=== PATIENT | male | born 1945 | race Caucasian/White ===

== ENCOUNTER 2018-05-30 09:23 | Emergency (ER) | payer MEDICARE, BC ==
[~2018-05-30] VITALS: Ht 180.3 cm; Wt 109.1 kg
[~2018-05-30 09:23] MED LIST: ALLO300T2 PO; AMLO5TAB PO; ASPI-611 PO; ATOR-2 PO; CHOL10008 PO; CITA20TA19 PO; DESO15CR13 TP; ERYT30GE4 TOP; GABA-532 PO; GUAI200T5 PO; HYDR-4070 PO; HYPR15DR4 EACHEYE; LINA5TAB4 PO; METF850T2 PO; METO200T49 PO; OLME1TAB21 PO; OMEP20TA5 PO; PIOG30TA10 PO; [UNRECOGNIZED DRUG - CODE] TOP
[2018-05-30] MEDS ORDERED: ipratropium/albuterol 3ml nebule NEB ONE (09:55)
[2018-05-30 10:10] LABS: BASOPHILS % (AUTO) 0.3 % (0-1); EOSINOPHILS # (AUTO) 0.2 X10'3 (0-0.9); HEMATOCRIT 36.8 % (42.0-52.0); HEMOGLOBIN 12.1 g/dl (14.0-17.9); LYMPHOCYTES # (AUTO) 1.2 X10'3 (1.1-4.8); MEAN CORPUSCULAR HEMOGLOBIN 31.5 PG (27.0-31.0); MEAN CORPUSCULAR HGB CONC 32.9 % (33.0-36.5); MEAN CORPUSCULAR VOLUME 95.7 FL (78-98); MONOCYTES # (AUTO) 0.6 X10'3 (0-0.9); MONOCYTES % (AUTO) 11.1 % (2-12); NEUTROPHILS # (AUTO) 3.6 X10'3 (1.8-7.7); NEUTROPHILS % (AUTO) 64.6 % (42-75); PLATELET COUNT 138 X10'3 (140-440); RED BLOOD COUNT 3.84 X10'6 (4.70-6.10); RED CELL DISTRIBUTION WIDTH 15.8 % (11.5-14.5); WHITE BLOOD COUNT 5.5 X10'3 (4.5-11.0)
[2018-05-30 10:21] LABS: INR 1.1 INR; PARTIAL THROMBOPLASTIN TIME 27 SECONDS (22-32); PROTHROMBIN TIME 11.3 SECONDS (9.0-12.0)
[2018-05-30 10:32] LABS: ALANINE AMINOTRANSFERASE 20 U/L (12-78); ALBUMIN 3.4 G/DL (3.4-5.0); ALBUMIN/GLOBULIN RATIO 1.1 (1.1-1.5); ALKALINE PHOSPHATASE 57 IU/L (46-116); ANION GAP 7 (8-16); ASPARTATE AMINO TRANSFERASE 16 U/L (10-37); BILIRUBIN,TOTAL 0.3 MG/DL (0.1-1.0); BLOOD UREA NITROGEN 10 MG/DL (7-18); BUN/CREATININE RATIO 10.6 (5.4-32.0); CALCIUM 8.7 MG/DL (8.5-10.1); CHLORIDE 103 MMOL/L (99-107); CREATININE 0.94 MG/DL (0.60-1.10); GLUCOSE 142 MG/DL (70-104); POTASSIUM 3.9 MMOL/L (3.5-5.1); SODIUM 138 MMOL/L (135-145); TOTAL PROTEIN 6.5 G/DL (6.4-8.2); eGFR 79 ML/MIN
[2018-05-30 10:51] VITALS: BP 160/81
== END 2018-05-30 11:03 | disposition home or self-care (01) ==
LOC: ER 09:24
DX: J44.9 Chronic obstructive pulmonary disease, unspecified (principal); R06.03 Acute respiratory distress; I25.10 Atherosclerotic heart disease of native coronary artery without angina pectoris; E78.00 Pure hypercholesterolemia, unspecified; I10 Essential (primary) hypertension; E11.9 Type 2 diabetes mellitus without complications; G89.29 Other chronic pain; Z95.1 Presence of aortocoronary bypass graft; Z98.890 Other specified postprocedural states; Z88.5 Allergy status to narcotic agent; Z79.82 Long term (current) use of aspirin; Z79.84 Long term (current) use of oral hypoglycemic drugs; Z79.899 Other long term (current) drug therapy
CPT/HCPCS: 36415; 71045; 80053; 83880; 84484; 85025; 85610; 85730; 93005; 94640; 94760; 99285

== ENCOUNTER 2018-09-25 02:42 | Inpatient (IN) | payer MEDICARE, BC ==
[~2018-09-25] VITALS: Ht 180.3 cm; Wt 111.8 kg
[~2018-09-25 02:42] MED LIST changes: +METF-437 PO; -METF850T2 PO
[2018-09-25] MEDS ORDERED: aspirin 81mg tab.chew PO ONE (03:25)
[2018-09-25] MEDS ORDERED: nitroGLYCERIN 0.4mg SUBLingual tab SL PRN ×2 (03:25→15:30)
[2018-09-25 04:15] LABS: BASOPHILS % (AUTO) 0.5 % (0-1); EOSINOPHILS # (AUTO) 0.2 X10'3 (0-0.9); EOSINOPHILS % (AUTO) 3.4 % (0-6); HEMATOCRIT 36.7 % (42.0-52.0); HEMOGLOBIN 12.1 g/dl (14.0-17.9); LYMPHOCYTES # (AUTO) 1.6 X10'3 (1.1-4.8); LYMPHOCYTES % (AUTO) 21.9 % (21-51); MEAN CORPUSCULAR HEMOGLOBIN 30.9 PG (27.0-31.0); MEAN CORPUSCULAR HGB CONC 33.1 % (33.0-36.5); MEAN CORPUSCULAR VOLUME 93.4 FL (78-98); MEAN PLATELET VOLUME 9.3 FL (7.4-10.4); MONOCYTES # (AUTO) 0.7 X10'3 (0-0.9); MONOCYTES % (AUTO) 9.8 % (2-12); NEUTROPHILS # (AUTO) 4.7 X10'3 (1.8-7.7); NEUTROPHILS % (AUTO) 64.4 % (42-75); PLATELET COUNT 125 X10'3 (140-440); RED BLOOD COUNT 3.93 X10'6 (4.70-6.10); RED CELL DISTRIBUTION WIDTH 15.7 % (11.5-14.5); WHITE BLOOD COUNT 7.3 X10'3 (4.5-11.0)
[2018-09-25 04:32] LABS: ALANINE AMINOTRANSFERASE 19 U/L (12-78); ALBUMIN 3.4 G/DL (3.4-5.0); ALBUMIN/GLOBULIN RATIO 1.1 (1.1-1.5); ALKALINE PHOSPHATASE 65 IU/L (46-116); ANION GAP 8 (8-16); ASPARTATE AMINO TRANSFERASE 12 U/L (10-37); BILIRUBIN,TOTAL 0.4 MG/DL (0.1-1.0); BLOOD UREA NITROGEN 16 MG/DL (7-18); BUN/CREATININE RATIO 16.2 (5.4-32.0); CALCIUM 9.1 MG/DL (8.5-10.1); CHLORIDE 102 MMOL/L (99-107); CREATININE 0.99 MG/DL (0.60-1.10); GLUCOSE 130 MG/DL (70-104); POTASSIUM 3.9 MMOL/L (3.5-5.1); SODIUM 140 MMOL/L (135-145); TOTAL CARBON DIOXIDE 30.5 MMOL/L (24-32); TOTAL PROTEIN 6.4 G/DL (6.4-8.2); eGFR 74 ML/MIN
[2018-09-25 04:33] LABS: INR 1.1 INR; PROTHROMBIN TIME 11.4 SECONDS (9.0-12.0)
[2018-09-25 04:39] LABS: MAGNESIUM 1.1 MG/DL (1.5-2.4)
[2018-09-25] MEDS ORDERED: ondansetron/PF 4mg/2ml inj IV PRN (05:30)
[2018-09-25] MEDS ORDERED: mag hydrox/Alum hydrox/simeth 30ml oral suspension PO PRN (05:30)
[2018-09-25] MEDS ORDERED: acetaminophen 325mg tablet PO PRN (05:30)
[2018-09-25] MEDS ORDERED: magnesium hydroxide 30ml (MOM) UD suspension PO PRN (05:30)
[2018-09-25] MEDS ORDERED: METF500T PO (05:52)
[2018-09-25] MEDS: losartan 50mg tablet PO SCH (08:53)
[2018-09-25] MEDS: HYDROchlorothiazide 12.5mg capsule PO SCH (08:54)
[2018-09-25] MEDS: gabapentin 300mg capsule PO SCH ×2 (08:54→18:56)
[2018-09-25] MEDS: aspirin 81mg tab.chew PO SCH (08:54)
[2018-09-25] MEDS: heparin, porcine 5000 units/ml vial SQ SCH ×2 (08:56→18:57)
[2018-09-25] MEDS ORDERED: metoprolol tartrate 1mg/ml inj IV PRN (15:30)
[2018-09-25] MEDS ORDERED: aminophylline 250mg/10ml inj. IV PRN (15:30)
[2018-09-25] MEDS ORDERED: regadenoson 0.4mg/5ml syringe IV PRN (15:30)
--- NOTE | 2018-09-25 16:00 | NUR ---
Patient in room ED 9. I have received report from Cynthia RN and had the opportunity to ask questions and assume patient care.
--- NOTE | 2018-09-25 16:15 | NUR ---
Patient arrived from ED with ER nurse and in PCU room 3016A. Patient resting comfortably in bed and in no acute distress. VS 168/81, KAT 54, RR 18, O2 94 on RA. Patient oriented to room and call light. All questions and concerned answered at this time. Will continue to monitor patient.
--- NOTE | 2018-09-25 18:30 | NUR ---
Received report from Glenny STEVENS. Assumed patient care. Patient is awake and alert on room air visiting with his . Call light and items of frequent use within reach. Will continue to monitor for changes.
[2018-09-25] MEDS ORDERED: amLODIPine 5mg tablet PO SCH ×2 (18:54→21:00)
[2018-09-25 19:00] VITALS: BP 186/86
[2018-09-25 20:00] VITALS: BP 173/63
[2018-09-25] MEDS ORDERED: citalopram 20mg tablet PO SCH (21:00)
[2018-09-25] MEDS ORDERED: metoprolol succinate 25mg (24-HOUR) SR. Tablet PO SCH (21:00)
[2018-09-25] MEDS ORDERED: atorvastatin 20mg tablet PO SCH (21:00)
[2018-09-25] MEDS ORDERED: allopurinol 300 MG tablet PO SCH (21:00)
[2018-09-25 23:00] VITALS: BP 153/72
[2018-09-26] VITALS (8 sets, daily range): BP systolic 145–175; BP diastolic 61–84
--- NOTE | 2018-09-26 06:20 | NUR ---
Reported off to Malissa STEVENS. Patient is awake and alert on room air. In no apparent distress. Call light and items of frequent use within reach.
[2018-09-26 06:29] LABS: BASOPHILS % (AUTO) 0.5 % (0-1); EOSINOPHILS # (AUTO) 0.2 X10'3 (0-0.9); EOSINOPHILS % (AUTO) 3.8 % (0-6); HEMATOCRIT 37.2 % (42.0-52.0); HEMOGLOBIN 12.4 g/dl (14.0-17.9); LYMPHOCYTES # (AUTO) 1.7 X10'3 (1.1-4.8); LYMPHOCYTES % (AUTO) 28.1 % (21-51); MEAN CORPUSCULAR HGB CONC 33.3 % (33.0-36.5); MEAN CORPUSCULAR VOLUME 93.1 FL (78-98); MEAN PLATELET VOLUME 9.9 FL (7.4-10.4); MONOCYTES # (AUTO) 0.6 X10'3 (0-0.9); MONOCYTES % (AUTO) 10.9 % (2-12); NEUTROPHILS # (AUTO) 3.3 X10'3 (1.8-7.7); NEUTROPHILS % (AUTO) 56.7 % (42-75); PLATELET COUNT 124 X10'3 (140-440); RED CELL DISTRIBUTION WIDTH 15.5 % (11.5-14.5); WHITE BLOOD COUNT 5.9 X10'3 (4.5-11.0)
[2018-09-26 06:37] LABS: ALANINE AMINOTRANSFERASE 19 U/L (12-78); ALBUMIN 3.3 G/DL (3.4-5.0); ALBUMIN/GLOBULIN RATIO 1.1 (1.1-1.5); ALKALINE PHOSPHATASE 59 IU/L (46-116); ANION GAP 7 (8-16); ASPARTATE AMINO TRANSFERASE 15 U/L (10-37); BILIRUBIN,TOTAL 0.5 MG/DL (0.1-1.0); BLOOD UREA NITROGEN 12 MG/DL (7-18); CALCIUM 8.6 MG/DL (8.5-10.1); CHLORIDE 103 MMOL/L (99-107); CREATININE 0.92 MG/DL (0.60-1.10); GLUCOSE 140 MG/DL (70-104); POTASSIUM 3.7 MMOL/L (3.5-5.1); SODIUM 141 MMOL/L (135-145); TOTAL CARBON DIOXIDE 31.4 MMOL/L (24-32); TOTAL PROTEIN 6.4 G/DL (6.4-8.2); eGFR 81 ML/MIN
[2018-09-26 06:50] LABS: MAGNESIUM 1.1 MG/DL (1.5-2.4)
[2018-09-26] MEDS ORDERED: magnesium 4gm in 100ml NS 100 ML IV PRN (07:25)
[2018-09-26] MEDS ORDERED: magnesium Cl slow-release 64mg tablet PO PRN (07:25)
[2018-09-26] MEDS ORDERED: potassium Cl 20 mEq SR tablet PO PRN ×2 (07:25)
[2018-09-26] MEDS ORDERED: potassium Cl 40MEQ/NS 500ml 500 ML IV PRN ×2 (07:25)
[2018-09-26] MEDS: heparin, porcine 5000 units/ml vial SQ SCH (08:00)
[2018-09-26] MEDS ORDERED: regadenoson 0.4mg/5ml syringe IV ONE (08:43)
[2018-09-26] MEDS ORDERED: aminophylline inj. 10 ML IV ONE (08:43)
[2018-09-26] MEDS: HYDROchlorothiazide 12.5mg capsule PO SCH (11:52)
[2018-09-26] MEDS: gabapentin 300mg capsule PO SCH (11:52)
[2018-09-26] MEDS: losartan 50mg tablet PO SCH (11:52)
[2018-09-26] MEDS: aspirin 81mg tab.chew PO SCH (11:52)
== END 2018-09-26 12:45 | disposition home or self-care (01) | DRG 303 ==
LOC: ER 02:42 → ED HOLD 05:27 → PCU 3S 16:15
PROVIDERS: ADMIT Internal Medicine; ATTEND Internal Medicine
PROC: 4A02XM4 Measurement of Cardiac Total Activity, External Approach (ICD-10-PCS; principal; 2018-09-26)
PROC: 3E033HZ Introduction of Radioactive Substance into Peripheral Vein, Percutaneous Approach (ICD-10-PCS; 2018-09-26)
DX: I25.118 Atherosclerotic heart disease of native coronary artery with other forms of angina pectoris (principal); E78.00 Pure hypercholesterolemia, unspecified; G47.33 Obstructive sleep apnea (adult) (pediatric); G89.29 Other chronic pain; E11.42 Type 2 diabetes mellitus with diabetic polyneuropathy; I10 Essential (primary) hypertension; J44.9 Chronic obstructive pulmonary disease, unspecified; E78.5 Hyperlipidemia, unspecified; M10.9 Gout, unspecified; F32.9 Major depressive disorder, single episode, unspecified; K21.9 Gastro-esophageal reflux disease without esophagitis; Z95.1 Presence of aortocoronary bypass graft; Z79.899 Other long term (current) drug therapy; Z79.82 Long term (current) use of aspirin; Z88.5 Allergy status to narcotic agent; Z87.442 Personal history of urinary calculi; Z82.49 Family history of ischemic heart disease and other diseases of the circulatory system; Z80.9 Family history of malignant neoplasm, unspecified; Z83.3 Family history of diabetes mellitus
CPT/HCPCS: 36415; 71045; 78452; 80053; 82948; 83036; 83735; 83880; 84484; 85025; 85610; 93005; 93017; 99285; A9500; G0378; J0280; J1644; J3475

== ENCOUNTER 2018-12-16 20:41 | Emergency (ER) | payer MEDICARE, BC ==
[~2018-12-16] VITALS: Ht 180.3 cm; Wt 97.7 kg
[~2018-12-16 20:41] MED LIST changes: -HYDR-4070 PO; -LINA5TAB4 PO; -METF-437 PO; +METF500T PO
[2018-12-16 21:36] LABS: BASOPHILS % (AUTO) 0.3 % (0-1); EOSINOPHILS # (AUTO) 0.1 X10'3 (0-0.9); EOSINOPHILS % (AUTO) 1.3 % (0-6); HEMATOCRIT 38.3 % (42.0-52.0); HEMOGLOBIN 12.6 g/dl (14.0-17.9); LYMPHOCYTES % (AUTO) 21.7 % (21-51); MEAN CORPUSCULAR HEMOGLOBIN 30.2 PG (27.0-31.0); MEAN CORPUSCULAR HGB CONC 32.9 g/dL (33.0-36.5); MEAN PLATELET VOLUME 8.6 FL (7.4-10.4); MONOCYTES # (AUTO) 0.9 X10'3 (0-0.9); MONOCYTES % (AUTO) 10.2 % (2-12); NEUTROPHILS # (AUTO) 6.1 X10'3 (1.8-7.7); NEUTROPHILS % (AUTO) 66.5 % (42-75); PLATELET COUNT 214 X10'3 (140-440); RED BLOOD COUNT 4.16 X10'6 (4.70-6.10); RED CELL DISTRIBUTION WIDTH 15.1 % (11.5-14.5); WHITE BLOOD COUNT 9.2 X10'3 (4.5-11.0)
[2018-12-16 21:43] LABS: ANION GAP 12 (8-16); BLOOD UREA NITROGEN 14 MG/DL (7-18); BUN/CREATININE RATIO 16.7 (5.4-32.0); CALCIUM 9.1 MG/DL (8.5-10.1); CHLORIDE 102 MMOL/L (99-107); CREATININE 0.84 MG/DL (0.60-1.10); GLUCOSE 134 MG/DL (70-104); POTASSIUM 3.7 MMOL/L (3.5-5.1); SODIUM 139 MMOL/L (135-145); TOTAL CARBON DIOXIDE 24.6 MMOL/L (24-32); eGFR 90 ML/MIN
[2018-12-16 21:44] LABS: ALANINE AMINOTRANSFERASE 26 U/L (12-78); ALBUMIN 3.7 G/DL (3.4-5.0); ALBUMIN/GLOBULIN RATIO 0.9 (1.1-1.5); ALKALINE PHOSPHATASE 73 IU/L (46-116); ASPARTATE AMINO TRANSFERASE 20 U/L (10-37); BILIRUBIN,TOTAL 0.2 MG/DL (0.1-1.0); TOTAL PROTEIN 7.6 G/DL (6.4-8.2)
[2018-12-16] MEDS ORDERED: normal saline 1000ML IV soln IVB ONE (23:10)
[2018-12-16 23:18] VITALS: BP 161/65
[2018-12-16 23:34] LABS: MAGNESIUM 1.3 MG/DL (1.5-2.4)
--- NOTE | 2018-12-16 23:48 | NUR ---
RELIEVING RN FOR LUNCH, PT IS SLEEPING QUIETLY ON GURNEY, FAMILY AT BEDSIDE, RECEIVING 2ND LITER NS W/O
[2018-12-17] MEDS ORDERED: levoFLOXACIN 750MG TABLET PO ONE (00:05)
[2018-12-17 00:15] LABS: CLARITY,URINE CLEAR (Clear); COLOR,URINE STRAW (Yellow); GLUCOSE, URINE NEGATIVE (Neg); KETONES,URINE NEGATIVE (Neg); LEUKOCYTE ESTERASE ,URINE NEGATIVE (Neg); NITRITES, URINE NEGATIVE (Neg); OCCULT BLOOD,URINE NEGATIVE (Neg); PROTEIN,URINE NEGATIVE (Neg); UROBILINOGEN,URINE 0.2 E.U/dL (0.2-1.0)
[2018-12-17 00:20] LABS: UA COLLECTION TYPE URINAL
[2018-12-17] MEDS ORDERED: LEVO500T2 PO (00:24)
== END 2018-12-17 00:45 | disposition home or self-care (01) ==
LOC: ER 20:41
DX: J06.9 Acute upper respiratory infection, unspecified (principal); R22.40 Localized swelling, mass and lump, unspecified lower limb; I25.10 Atherosclerotic heart disease of native coronary artery without angina pectoris; E78.00 Pure hypercholesterolemia, unspecified; I10 Essential (primary) hypertension; J44.9 Chronic obstructive pulmonary disease, unspecified; E11.9 Type 2 diabetes mellitus without complications; G89.29 Other chronic pain; Z98.890 Other specified postprocedural states; Z95.1 Presence of aortocoronary bypass graft; Z87.891 Personal history of nicotine dependence; Z88.5 Allergy status to narcotic agent; Z79.82 Long term (current) use of aspirin; Z79.84 Long term (current) use of oral hypoglycemic drugs; Z79.899 Other long term (current) drug therapy
CPT/HCPCS: 36415; 71046; 80053; 81003; 83605; 83735; 83880; 85025; 87040; 93005; 99284; J7030

== ENCOUNTER 2019-03-08 09:43 | Day surgery (SDC) | payer MEDICARE, BC ==
[2019-03-04 10:29] LABS: BASOPHILS % (AUTO) 0.5 % (0-1); EOSINOPHILS # (AUTO) 0.2 X10'3 (0-0.9); EOSINOPHILS % (AUTO) 3.6 % (0-6); LYMPHOCYTES % (AUTO) 22.9 % (21-51); MEAN CORPUSCULAR HEMOGLOBIN 30.6 PG (27.0-31.0); MEAN CORPUSCULAR HGB CONC 33.2 g/dL (33.0-36.5); MEAN CORPUSCULAR VOLUME 92.4 FL (78-98); MONOCYTES # (AUTO) 0.6 X10'3 (0-0.9); MONOCYTES % (AUTO) 12.8 % (2-12); NEUTROPHILS # (AUTO) 2.7 X10'3 (1.8-7.7); NEUTROPHILS % (AUTO) 60.2 % (42-75); PLATELET COUNT 146 X10'3 (140-440); WHITE BLOOD COUNT 4.5 X10'3 (4.5-11.0)
[2019-03-04 10:41] LABS: ALBUMIN 3.5 G/DL (3.4-5.0); ANION GAP 5 (8-16); BLOOD UREA NITROGEN 17 MG/DL (7-18); BUN/CREATININE RATIO 16.8 (5.4-32.0); CHLORIDE 106 MMOL/L (99-107); CREATININE 1.01 MG/DL (0.60-1.10); GLUCOSE 123 MG/DL (70-104); POTASSIUM 4.4 MMOL/L (3.5-5.1); SODIUM 142 MMOL/L (135-145); TOTAL CARBON DIOXIDE 30.9 MMOL/L (24-32); eGFR 73 ML/MIN
[2019-03-04 13:39] LABS: PARTIAL THROMBOPLASTIN TIME 30 SECONDS (22-32)
[~2019-03-08] VITALS: Ht 180.3 cm; Wt 126.3 kg
[2019-03-08] VITALS (9 sets, daily range): BP systolic 113–165; BP diastolic 32–77
[2019-03-08] MEDS ORDERED: LORazepam 0.5 MG tablet PO PRN (10:00)
[2019-03-08] MEDS ORDERED: diphenhydrAMINE 25mg capsule PO PRN (10:00)
[2019-03-08] MEDS ORDERED: normal saline 1,000 ML IV SCH (10:00)
[2019-03-08] MEDS ORDERED: CLOP75TA15 PO (11:13)
[2019-03-08] MEDS ORDERED: fentaNYL/PF 50MCG/1 ML 2ML syringe ONE (11:58)
[2019-03-08] MEDS ORDERED: iohexol 350MG/ML 100ml bottle IV ONE (11:58)
[2019-03-08] MEDS ORDERED: LIDOcaine 1% (10mg/ml)w/preservative injection 20ml MDV ONE (11:58)
[2019-03-08] MEDS ORDERED: midazolam 2 mg/2 ml injection ONE (11:58)
--- NOTE | 2019-03-08 12:52 | NUR ---
To dental laboratory assistant via tor.
[2019-03-08] MEDS ORDERED: verapamil 2.5 mg/ml inj IV ONE (13:03)
[2019-03-08] MEDS ORDERED: heparin 1,000unit/ml 10ml vial 10 ML ONE (13:03)
[2019-03-08] MEDS ORDERED: nitroGLYCERIN-Tridil 50MG/D5W 250 ML IV ONE (13:03)
[2019-03-08] MEDS ORDERED: HYDROcodone/acetaminophen 10/325mg tab PO PRN (14:50)
[2019-03-08] MEDS ORDERED: proCHLORperazine 10 MG/2 ml inj IV PRN (14:50)
[2019-03-08] MEDS ORDERED: ondansetron/PF 4mg/2ml inj IV PRN (14:50)
[2019-03-08] MEDS ORDERED: OXAZEpam 15mg capsule PO PRN (14:50)
[2019-03-08] MEDS ORDERED: HYDROcodone/acetaminophen 5mg/325mg tablet PO PRN (14:50)
[2019-03-08] MEDS ORDERED: acetaminophen 325mg tablet PO PRN (14:50)
[2019-03-08] MEDS ORDERED: normal saline 1000ml 1,000 ML IV SCH (14:50)
--- NOTE | 2019-03-08 17:19 | NUR ---
Right radial site continues to appear CDI. No bleeding, no hematoma noted after vasc band dc'd. Pt has ambulated and voided. IV dc'd. Home care, warning signs, follow up appointments, medications gone with pt and . They both verbalize understanding. Discharged home via wc in stable condition with .
== END 2019-03-08 17:15 | disposition home or self-care (01) ==
LOC: SSTAY O 09:43
PROVIDERS: ATTEND Internal Medicine Interventional Cardiology
DX: I25.10 Atherosclerotic heart disease of native coronary artery without angina pectoris (principal); I10 Essential (primary) hypertension; E11.51 Type 2 diabetes mellitus with diabetic peripheral angiopathy without gangrene; E11.9 Type 2 diabetes mellitus without complications; G47.33 Obstructive sleep apnea (adult) (pediatric); E78.5 Hyperlipidemia, unspecified; K21.9 Gastro-esophageal reflux disease without esophagitis; Z88.6 Allergy status to analgesic agent; Z79.899 Other long term (current) drug therapy; Z79.01 Long term (current) use of anticoagulants; Z87.891 Personal history of nicotine dependence; I35.0 Nonrheumatic aortic (valve) stenosis
CPT/HCPCS: 36415; 80048; 82948; 85025; 85610; 85730; 93005; 93454; 99152; A6257; C1769; J1644; J2001; J2250; J3010; J7030; Q0163; Q9967; 99153; A4620; J3490

== ENCOUNTER 2020-01-03 14:04 | Inpatient (IN) | payer BC, MEDICARE, OTHER ==
[~2020-01-03] VITALS: Ht 180.3 cm; Wt 122.0 kg
[~2020-01-03 14:04] MED LIST changes: +CLOP75TA15 PO; -DESO15CR13 TP; -ERYT30GE4 TOP; -GUAI200T5 PO; -HYPR15DR4 EACHEYE; -[UNRECOGNIZED DRUG - CODE] TOP
[2020-01-03] MEDS ORDERED: normal saline 1000ML IV soln IV ONE (14:20)
[2020-01-03 14:51] LABS: BASOPHILS % (AUTO) 0.5 % (0-1); EOSINOPHILS # (AUTO) 0.1 X10'3 (0-0.9); EOSINOPHILS % (AUTO) 1.6 % (0-6); HEMATOCRIT 32.7 % (42.0-52.0); HEMOGLOBIN 10.8 g/dl (14.0-17.9); LYMPHOCYTES # (AUTO) 1.3 X10'3 (1.1-4.8); MEAN CORPUSCULAR HEMOGLOBIN 30.7 PG (27.0-31.0); MEAN CORPUSCULAR HGB CONC 33.2 g/dL (33.0-36.5); MEAN CORPUSCULAR VOLUME 92.5 FL (78-98); MONOCYTES # (AUTO) 0.7 X10'3 (0-0.9); MONOCYTES % (AUTO) 12.8 % (2-12); NEUTROPHILS # (AUTO) 3.2 X10'3 (1.8-7.7); NEUTROPHILS % (AUTO) 60.1 % (42-75); PLATELET COUNT 137 X10'3 (140-440); RED BLOOD COUNT 3.53 X10'6 (4.70-6.10); RED CELL DISTRIBUTION WIDTH 16.2 % (11.5-14.5); WHITE BLOOD COUNT 5.3 X10'3 (4.5-11.0)
[2020-01-03 15:04] LABS: ALANINE AMINOTRANSFERASE 6 U/L (12-78); ALBUMIN 3.8 G/DL (3.4-5.0); ALBUMIN/GLOBULIN RATIO 1.2 (1.1-1.5); ALKALINE PHOSPHATASE 52 IU/L (46-116); ANION GAP 5 (8-16); ASPARTATE AMINO TRANSFERASE 18 U/L (10-37); BILIRUBIN,TOTAL 0.3 MG/DL (0.1-1.0); BLOOD UREA NITROGEN 30 MG/DL (7-18); BUN/CREATININE RATIO 28.6 (5.4-32.0); CALCIUM 8.7 MG/DL (8.5-10.1); CHLORIDE 104 MMOL/L (99-107); CREATININE 1.05 MG/DL (0.60-1.10); GLUCOSE 124 MG/DL (70-104); SODIUM 138 MMOL/L (135-145); TOTAL CARBON DIOXIDE 28.7 MMOL/L (24-32); eGFR 69 ML/MIN
[2020-01-03] MEDS ORDERED: pantoprazole 40 MG vial IV ONE (15:05)
[2020-01-03 15:27] LABS: OCCULT BLOOD STOOL POSITIVE (Neg)
[2020-01-03] MEDS: pantoprazole 40MG/NS 100ML BAG 100 ML IV SCH ×2 (15:33→20:05)
[2020-01-03] MEDS ORDERED: PREG150C46 PO (15:34)
[2020-01-03] MEDS ORDERED: APIX5TAB3 PO (15:34)
[2020-01-03] MEDS ORDERED: pantoprazole 40MG/NS 100ML BAG 100 ML IV SCH ×2 (16:00→21:00)
[2020-01-03] MEDS ORDERED: glucagon, human recombinant 1mg kit SUBCUT PRN (16:25)
[2020-01-03] MEDS ORDERED: potassium CL 10mEq/100ml bag 100 ML IV PRN ×2 (16:25)
[2020-01-03] MEDS ORDERED: docusate sod 100mg capsule PO PRN (16:25)
[2020-01-03] MEDS ORDERED: dextrose ORAL solution 15 GM/59 ML bottle PO PRN ×2 (16:25)
[2020-01-03] MEDS ORDERED: potassium Cl 20 mEq SR tablet PO PRN ×2 (16:25)
[2020-01-03] MEDS ORDERED: mag hydrox/Alum hydrox/simeth 30ml oral suspension PO PRN (16:25)
[2020-01-03] MEDS ORDERED: ondansetron/PF 4mg/2ml inj IV PRN (16:25)
[2020-01-03] MEDS ORDERED: MESSAGE TO PHARMACY PO ONE (16:25)
[2020-01-03] MEDS ORDERED: HYDROcodone/acetaminophen 5mg/325mg tablet PO PRN (16:25)
[2020-01-03] MEDS ORDERED: acetaminophen 325mg tablet PO PRN ×2 (16:25)
[2020-01-03] MEDS ORDERED: dextrose 50%-water 50ml dispensing syringe IV PRN ×2 (16:25)
[2020-01-03] MEDS ORDERED: insulin Lispro (HumaLOG) vial - multi-dose SQ SCH (16:25)
[2020-01-03] MEDS ORDERED: magnesium 2GM in 50ml NS 50 ML IV PRN (16:25)
[2020-01-03] MEDS ORDERED: magnesium 4gm in 100ml NS 100 ML IV PRN (16:25)
[2020-01-03] MEDS ORDERED: HYDROcodone/acetaminophen 10/325mg tab PO PRN (16:25)
[2020-01-03 18:28] LABS: CLARITY,URINE CLEAR (Clear); COLOR,URINE STRAW (Yellow); GLUCOSE, URINE NEGATIVE (Neg); KETONES,URINE NEGATIVE (Neg); LEUKOCYTE ESTERASE ,URINE NEGATIVE (Neg); NITRITES, URINE NEGATIVE (Neg); OCCULT BLOOD,URINE NEGATIVE (Neg); PROTEIN,URINE NEGATIVE (Neg); UROBILINOGEN,URINE 0.2 E.U/dL (0.2-1.0)
[2020-01-03 18:32] LABS: UA COLLECTION TYPE CLN CATCH MIDSTREAM
[2020-01-03 19:54] LABS: HEMATOCRIT 28.3 % (42.0-52.0); HEMOGLOBIN 9.4 g/dl (14.0-17.9); MEAN CORPUSCULAR HEMOGLOBIN 30.9 PG (27.0-31.0); MEAN CORPUSCULAR HGB CONC 33.4 g/dL (33.0-36.5); MEAN CORPUSCULAR VOLUME 92.7 FL (78-98); MEAN PLATELET VOLUME 8.7 FL (7.4-10.4); PLATELET COUNT 117 X10'3 (140-440); RED BLOOD COUNT 3.05 X10'6 (4.70-6.10); RED CELL DISTRIBUTION WIDTH 16.3 % (11.5-14.5); WHITE BLOOD COUNT 4.2 X10'3 (4.5-11.0)
--- NOTE | 2020-01-03 20:00 | NUR ---
Received report from ELECTRICIAN HELPERHILDA Casey. Patient to follow shortly.
--- NOTE | 2020-01-03 20:00 | NUR ---
Patient in room RUSTY 360. I have received report from Sri STEVENS and had the opportunity to ask questions and assume patient care. Addendum: 01/03/20 at 2249 by Bernadette Greenberg RN Incorrect - wrong patient
--- NOTE | 2020-01-03 20:15 | NUR ---
Patient arrived to floor via gurney. A&Ox4 and in no distress. Patient ambulated to bed.
[2020-01-03 20:41] VITALS: BP 154/66
[2020-01-03] MEDS ORDERED: amLODIPine 5mg tablet PO SCH (21:00)
[2020-01-03] MEDS ORDERED: insulin glargine (Lantus) pen - multi-dose SQ SCH (21:00)
[2020-01-03] MEDS ORDERED: atorvastatin 20mg tablet PO SCH (21:00)
[2020-01-03] MEDS ORDERED: citalopram 20mg tablet PO SCH (21:00)
[2020-01-03] MEDS ORDERED: metoprolol succinate 25mg (24-HOUR) SR. Tablet PO SCH (21:00)
[2020-01-03] MEDS ORDERED: allopurinol 300 MG tablet PO SCH (21:00)
[2020-01-03] MEDS: K and/or MAG REPLACEMENT MC SCH (21:30)
[2020-01-03 22:00] VITALS: BP 156/70
[2020-01-03] MEDS: pregabalin 75mg capsule PO SCH (22:01)
[2020-01-04] VITALS (12 sets, daily range): BP systolic 111–155; BP diastolic 53–80
[2020-01-04] MEDS: pantoprazole 40MG/NS 100ML BAG 100 ML IV SCH ×3 (00:34→11:58)
--- NOTE | 2020-01-04 03:19 | NUR ---
Patient NPO status and has not eaten - requested accu check in middle of night "just in case". Addendum: 01/04/20 at 0320 by Bernadette Greenberg RN Amended: Links added.
[2020-01-04 06:28] LABS: BASOPHILS % (AUTO) 0.6 % (0-1); EOSINOPHILS # (AUTO) 0.2 X10'3 (0-0.9); EOSINOPHILS % (AUTO) 3.8 % (0-6); HEMATOCRIT 28.1 % (42.0-52.0); HEMOGLOBIN 9.4 g/dl (14.0-17.9); LYMPHOCYTES # (AUTO) 1.1 X10'3 (1.1-4.8); LYMPHOCYTES % (AUTO) 26.4 % (21-51); MEAN CORPUSCULAR HEMOGLOBIN 30.7 PG (27.0-31.0); MEAN CORPUSCULAR HGB CONC 33.3 g/dL (33.0-36.5); MEAN CORPUSCULAR VOLUME 92.2 FL (78-98); MEAN PLATELET VOLUME 9.2 FL (7.4-10.4); MONOCYTES # (AUTO) 0.5 X10'3 (0-0.9); MONOCYTES % (AUTO) 13.1 % (2-12); NEUTROPHILS # (AUTO) 2.3 X10'3 (1.8-7.7); NEUTROPHILS % (AUTO) 56.1 % (42-75); PLATELET COUNT 113 X10'3 (140-440); RED BLOOD COUNT 3.05 X10'6 (4.70-6.10); RED CELL DISTRIBUTION WIDTH 16.4 % (11.5-14.5); WHITE BLOOD COUNT 4.2 X10'3 (4.5-11.0)
[2020-01-04 06:33] LABS: ALANINE AMINOTRANSFERASE 21 U/L (12-78); ALBUMIN 3.2 G/DL (3.4-5.0); ALBUMIN/GLOBULIN RATIO 1.2 (1.1-1.5); ALKALINE PHOSPHATASE 43 IU/L (46-116); ANION GAP 7 (8-16); ASPARTATE AMINO TRANSFERASE 20 U/L (10-37); BILIRUBIN,TOTAL 0.3 MG/DL (0.1-1.0); BLOOD UREA NITROGEN 18 MG/DL (7-18); BUN/CREATININE RATIO 19.6 (5.4-32.0); CALCIUM 8.2 MG/DL (8.5-10.1); CHLORIDE 108 MMOL/L (99-107); CREATININE 0.92 MG/DL (0.60-1.10); GLUCOSE 126 MG/DL (70-104); MAGNESIUM 1.7 MG/DL (1.5-2.4); SODIUM 142 MMOL/L (135-145); TOTAL CARBON DIOXIDE 27.5 MMOL/L (24-32); TOTAL PROTEIN 5.9 G/DL (6.4-8.2); eGFR 81 ML/MIN
--- NOTE | 2020-01-04 06:45 | NUR ---
Patient in room RUSTY 360. I have received report from HILDA Fleming and had the opportunity to ask questions and assume patient care.
--- NOTE | 2020-01-04 06:53 | NUR ---
Problems reprioritized. Patient report given, questions answered & plan of care reviewed with Sri RN.
[2020-01-04] MEDS ORDERED: vitamin D (cholecalciferol) 1,000 unit tablet PO SCH (08:00)
[2020-01-04] MEDS: K and/or MAG REPLACEMENT MC SCH (08:00)
[2020-01-04] MEDS ORDERED: HYDROchlorothiazide 12.5mg capsule PO SCH (08:00)
[2020-01-04] MEDS ORDERED: losartan 50mg tablet PO SCH (08:00)
[2020-01-04] MEDS: pregabalin 75mg capsule PO SCH (08:35)
--- NOTE | 2020-01-04 12:12 | NUR ---
DM consult: Pt with A1c 7.0% seen at bedside provided with written DM education with referral to outpatient CDE course (class currently on hold however pt provided with contact information). Pt states he has attended the outpatient course before and reports he's has DM for roughly 25 years and denies questions about management at this time. Per records patient's A1c generally well controlled around 7.0%. Pt provided with RD contact information. Pt currently NPO however endorses a good appetite and denies food allergies or difficulty chewing/swallowing. Will continue to follow. Addendum: 01/04/20 at [address] Amended: Links added.
[2020-01-04] MEDS ORDERED: fentaNYL/PF 50MCG/1 ML 2ML syringe ONE (13:59)
[2020-01-04] MEDS ORDERED: LIDOcaine Viscous 15ml cup ONE (14:00)
[2020-01-04] MEDS ORDERED: MIDAZolam 5mg/5ml vial ONE (14:00)
[2020-01-04] MEDS ORDERED: PANT-47 PO (16:10)
--- NOTE | 2020-01-04 17:28 | NUR ---
Patient stating he would like to go home; Dr. Hoffman put in order for discharge. Went over discharge instructions with patient, who understands to come back to ER if he experiences any more/increased black stools or blood/clots in stool, feels faint/dizzy, throws up blood, etc. Patient understands uses of Protonix, and states he will take protonix BID as directed. Patient discharged in stable condition with nursing staff assisting in a wheelchair and all his belongings sent with him.
== END 2020-01-04 17:25 | disposition home or self-care (01) | DRG 379 ==
LOC: ER 14:04 → ED HOLD 16:35 → SUR 3N 20:15
PROVIDERS: ADMIT Family Medicine; ATTEND Family Medicine
PROC: 0DB68ZX Excision of Stomach, Via Natural or Artificial Opening Endoscopic, Diagnostic (ICD-10-PCS; principal; 2020-01-04)
DX: K29.71 Gastritis, unspecified, with bleeding (principal); E11.42 Type 2 diabetes mellitus with diabetic polyneuropathy; E78.5 Hyperlipidemia, unspecified; I35.0 Nonrheumatic aortic (valve) stenosis; K25.4 Chronic or unspecified gastric ulcer with hemorrhage; E78.00 Pure hypercholesterolemia, unspecified; I10 Essential (primary) hypertension; E11.51 Type 2 diabetes mellitus with diabetic peripheral angiopathy without gangrene; J44.9 Chronic obstructive pulmonary disease, unspecified; I25.10 Atherosclerotic heart disease of native coronary artery without angina pectoris; Z79.01 Long term (current) use of anticoagulants; Z79.82 Long term (current) use of aspirin; Z79.84 Long term (current) use of oral hypoglycemic drugs; Z80.1 Family history of malignant neoplasm of trachea, bronchus and lung; Z82.49 Family history of ischemic heart disease and other diseases of the circulatory system; Z83.3 Family history of diabetes mellitus; Z87.11 Personal history of peptic ulcer disease; Z87.891 Personal history of nicotine dependence; Z95.2 Presence of prosthetic heart valve
CPT/HCPCS: 36415; 43239; 80053; 81003; 82272; 82948; 83036; 83735; 85025; 85027; 85610; 86885; 86900; 86901; 87081; 93005; 97161; 97530; 99152; 99153; A4620; C9113; G0378; J1815; J2250; J3010; J7030; J7040

== ENCOUNTER 2020-06-11 13:28 | Outpatient (CLI) | payer MEDICARE, BC ==
[~2020-06-11 13:28] MED LIST changes: -ASPI-611 PO; -CLOP75TA15 PO; -GABA-532 PO; -OMEP20TA5 PO; +PANT-47 PO; +PREG150C46 PO
[2020-06-11] MEDS ORDERED: iohexol 350MG/ML 100ml bottle IV ONE (14:44)
[2020-06-11] MEDS ORDERED: iohexol 350 MG/ML 50ML vial IV ONE (14:44)
== END 2020-06-11 23:59 | disposition home or self-care (01) ==
LOC: 64 CT 13:28
DX: I70.203 Unspecified atherosclerosis of native arteries of extremities, bilateral legs (principal); N40.0 Benign prostatic hyperplasia without lower urinary tract symptoms; K40.20 Bilateral inguinal hernia, without obstruction or gangrene, not specified as recurrent; M25.462 Effusion, left knee; D68.9 Coagulation defect, unspecified; I70.0 Atherosclerosis of aorta
CPT/HCPCS: 73706; Q9967

== ENCOUNTER 2020-09-28 09:52 | Observation (INO) | payer MEDICARE, BC ==
[~2020-09-28] VITALS: Ht 180.3 cm; Wt 122.7 kg
[2020-09-28 10:47] LABS: BASOPHILS % (AUTO) 0.5 % (0-1); EOSINOPHILS # (AUTO) 0.1 X10'3 (0-0.9); EOSINOPHILS % (AUTO) 2.4 % (0-6); HEMATOCRIT 39.6 % (42.0-52.0); HEMOGLOBIN 13.1 g/dl (14.0-17.9); LYMPHOCYTES # (AUTO) 1.1 X10'3 (1.1-4.8); LYMPHOCYTES % (AUTO) 21.4 % (21-51); MEAN CORPUSCULAR HEMOGLOBIN 31.1 PG (27.0-31.0); MEAN CORPUSCULAR VOLUME 94.1 FL (78-98); MEAN PLATELET VOLUME 8.5 FL (7.4-10.4); MONOCYTES # (AUTO) 0.7 X10'3 (0-0.9); MONOCYTES % (AUTO) 13.7 % (2-12); NEUTROPHILS # (AUTO) 3.3 X10'3 (1.8-7.7); PLATELET COUNT 119 X10'3 (140-440); RED CELL DISTRIBUTION WIDTH 16.7 % (11.5-14.5); WHITE BLOOD COUNT 5.3 X10'3 (4.5-11.0)
[2020-09-28 11:16] LABS: ALANINE AMINOTRANSFERASE 28 U/L (12-78); ALBUMIN 3.9 G/DL (3.4-5.0); ALBUMIN/GLOBULIN RATIO 1.1 (1.1-1.5); ALKALINE PHOSPHATASE 73 IU/L (46-116); ANION GAP 8 (8-16); ASPARTATE AMINO TRANSFERASE 18 U/L (10-37); BILIRUBIN,TOTAL 0.5 MG/DL (0.1-1.0); BLOOD UREA NITROGEN 12 MG/DL (7-18); BUN/CREATININE RATIO 11.8 (5.4-32.0); CHLORIDE 103 MMOL/L (99-107); CREATININE 1.02 MG/DL (0.60-1.10); GLUCOSE 141 MG/DL (70-104); POTASSIUM 3.9 MMOL/L (3.5-5.1); SODIUM 140 MMOL/L (135-145); TOTAL CARBON DIOXIDE 28.9 MMOL/L (24-32); TOTAL PROTEIN 7.3 G/DL (6.4-8.2); eGFR 71 ML/MIN
[2020-09-28] MEDS ORDERED: nitroGLYCERIN 0.4mg/hour patch TD ONE (12:10)
[2020-09-28] MEDS ORDERED: aspirin 81mg tab.chew PO ONE (12:10)
[2020-09-28] MEDS ORDERED: normal saline 1000ml 1,000 ML IV ONE (12:10)
[2020-09-28] MEDS ORDERED: magnesium hydroxide 30ml (MOM) UD suspension PO PRN (13:20)
[2020-09-28] MEDS ORDERED: MESSAGE TO PHARMACY PO ONE (13:20)
[2020-09-28] MEDS ORDERED: nitroGLYCERIN 0.4mg SUBLingual tab SL PRN ×2 (13:20→14:45)
[2020-09-28] MEDS ORDERED: mag hydrox/Alum hydrox/simeth 30ml oral suspension PO PRN (13:20)
[2020-09-28] MEDS ORDERED: insulin Lispro (HumaLOG) vial - multi-dose SQ SCH (13:20)
[2020-09-28] MEDS ORDERED: dextrose ORAL solution 15 GM/59 ML bottle PO PRN ×2 (13:20)
[2020-09-28] MEDS ORDERED: ondansetron/PF 4mg/2ml inj IV PRN (13:20)
[2020-09-28] MEDS ORDERED: morphine 2 MG/ML inj. syringe IV PRN ×2 (13:20)
[2020-09-28] MEDS ORDERED: acetaminophen 325mg tablet PO PRN ×2 (13:20)
[2020-09-28] MEDS ORDERED: dextrose 50%-water 50ml dispensing syringe IV PRN ×2 (13:20)
[2020-09-28] MEDS ORDERED: HYDROcodone/acetaminophen 5mg/325mg tablet PO PRN (13:20)
[2020-09-28] MEDS ORDERED: glucagon, human recombinant 1mg kit SUBCUT PRN (13:20)
[2020-09-28] MEDS ORDERED: CALC-1051 PO (13:34)
[2020-09-28] MEDS ORDERED: ERYT30GE4 TOP (13:34)
[2020-09-28] MEDS ORDERED: WOOL454C TOP (13:34)
[2020-09-28] MEDS ORDERED: DESO15CR13 TOP (13:34)
[2020-09-28] MEDS ORDERED: OMEP-50 PO (13:34)
[2020-09-28] MEDS ORDERED: ASPI-611 PO (13:34)
[2020-09-28] MEDS ORDERED: MAGN400T39 PO (13:34)
[2020-09-28] MEDS ORDERED: ZINC220C11 PO (13:34)
[2020-09-28] MEDS ORDERED: PIOG45TA5 PO (13:34)
[2020-09-28] MEDS ORDERED: APIX5TAB3 PO (13:34)
[2020-09-28] MEDS ORDERED: FERR-119 PO (13:34)
[2020-09-28] MEDS ORDERED: GLUC-95 PO (13:34)
[2020-09-28] MEDS ORDERED: BUDE10.2 INH (13:51)
[2020-09-28] MEDS ORDERED: IPRA4AER IH (13:51)
[2020-09-28] MEDS ORDERED: GABA300C PO ×2 (13:51)
[2020-09-28] MEDS ORDERED: METF-516 PO (13:51)
[2020-09-28] MEDS ORDERED: PANT-47 PO (13:51)
[2020-09-28 14:25] LABS: D-DIMER 0.52 MG/L FEU (0-0.50)
[2020-09-28] MEDS ORDERED: ETHANOL TOP PRN (14:40)
[2020-09-28] MEDS ORDERED: hydrocortisone 1% cream 28gm TP PRN (14:40)
[2020-09-28] MEDS ORDERED: ERYTHROMYCIN BASE TOP PRN (14:40)
[2020-09-28] MEDS ORDERED: aminophylline 250mg/10ml inj. IV PRN (14:45)
[2020-09-28] MEDS ORDERED: metoprolol tartrate 1mg/ml inj IV PRN (14:45)
[2020-09-28] MEDS ORDERED: regadenoson 0.4mg/5ml syringe IV PRN (14:45)
[2020-09-28 14:49] LABS: HEMOGLOBIN A1C 7.5 % (4.5-6.2)
[2020-09-28] MEDS ORDERED: ipratropium/albuterol 3ml nebule IH PRN (14:50)
--- NOTE | 2020-09-28 16:05 | NUR ---
Report received from ED RNJessy
[2020-09-28 16:30] VITALS: BP 155/84
[2020-09-28 18:00] VITALS: BP 135/83
--- NOTE | 2020-09-28 18:05 | NUR ---
Problems reprioritized. Patient report given, questions answered & plan of care reviewed with HILDA Nuñez.
[2020-09-28] MEDS: apixaban 5mg tablet PO SCH (19:50)
[2020-09-28] MEDS: gabapentin 300mg capsule PO SCH (19:50)
[2020-09-28] MEDS: budesonide 0.5mg/2ml UD nebule IH SCH (20:16)
[2020-09-28] MEDS ORDERED: atorvastatin 20mg tablet PO SCH (21:00)
[2020-09-28] MEDS ORDERED: non-formulary drug (Glucosamine HCl/Chondr Su A Na (Cidaflex Tablet) 1 TAB) PO SCH (21:00)
[2020-09-28] MEDS ORDERED: insulin glargine (Lantus) pen - multi-dose SQ SCH (21:00)
[2020-09-28] MEDS ORDERED: calcium carbonate/vitamin D3 tablet PO SCH (21:00)
[2020-09-28] MEDS ORDERED: magnesium oxide 400mg tablet PO SCH (21:00)
[2020-09-28] MEDS ORDERED: zinc sulfate 220mg capsule PO SCH (21:00)
[2020-09-28] MEDS ORDERED: citalopram 20mg tablet PO SCH (21:00)
[2020-09-28] MEDS ORDERED: allopurinol 300 MG tablet PO SCH (21:00)
[2020-09-28] MEDS ORDERED: metoprolol succinate 25mg (24-HOUR) SR. Tablet PO SCH (21:00)
[2020-09-28 22:00] VITALS: BP 116/55
[2020-09-29] VITALS (7 sets, daily range): BP systolic 119–163; BP diastolic 60–73
--- NOTE | 2020-09-29 06:22 | NUR ---
Problems reprioritized. Patient report given, questions answered & plan of care reviewed with HILDA Castillo.
[2020-09-29 06:46] LABS: BASOPHILS % (AUTO) 0.5 % (0-1); EOSINOPHILS # (AUTO) 0.3 X10'3 (0-0.9); EOSINOPHILS % (AUTO) 4.3 % (0-6); HEMATOCRIT 35.4 % (42.0-52.0); HEMOGLOBIN 11.7 g/dl (14.0-17.9); LYMPHOCYTES # (AUTO) 1.1 X10'3 (1.1-4.8); LYMPHOCYTES % (AUTO) 17.1 % (21-51); MEAN CORPUSCULAR HGB CONC 33.1 g/dL (33.0-36.5); MEAN CORPUSCULAR VOLUME 93.6 FL (78-98); MEAN PLATELET VOLUME 9.2 FL (7.4-10.4); MONOCYTES # (AUTO) 0.9 X10'3 (0-0.9); MONOCYTES % (AUTO) 14.3 % (2-12); NEUTROPHILS # (AUTO) 4.1 X10'3 (1.8-7.7); NEUTROPHILS % (AUTO) 63.8 % (42-75); PLATELET COUNT 119 X10'3 (140-440); RED BLOOD COUNT 3.78 X10'6 (4.70-6.10); RED CELL DISTRIBUTION WIDTH 16.5 % (11.5-14.5); WHITE BLOOD COUNT 6.4 X10'3 (4.5-11.0)
[2020-09-29 07:10] LABS: ALBUMIN 3.5 G/DL (3.4-5.0); ANION GAP 4 (8-16); BLOOD UREA NITROGEN 12 MG/DL (7-18); BUN/CREATININE RATIO 11.7 (5.4-32.0); CALCIUM 9.2 MG/DL (8.5-10.1); CHLORIDE 102 MMOL/L (99-107); CREATININE 1.03 MG/DL (0.60-1.10); GLUCOSE 154 MG/DL (70-104); POTASSIUM 3.9 MMOL/L (3.5-5.1); SODIUM 136 MMOL/L (135-145); TOTAL CARBON DIOXIDE 30.5 MMOL/L (24-32); eGFR 71 ML/MIN
[2020-09-29] MEDS: budesonide 0.5mg/2ml UD nebule IH SCH (07:30)
[2020-09-29] MEDS ORDERED: losartan 50mg tablet PO SCH (08:00)
[2020-09-29] MEDS ORDERED: aspirin 81mg tablet.DR PO SCH ×2 (08:00)
[2020-09-29] MEDS ORDERED: amLODIPine 5mg tablet PO SCH (08:00)
[2020-09-29] MEDS ORDERED: HYDROchlorothiazide 12.5mg capsule PO SCH (08:00)
[2020-09-29] MEDS ORDERED: ferrous sulfate 325mg tablet PO SCH (08:00)
[2020-09-29] MEDS ORDERED: vitamin D (cholecalciferol) 1,000 unit tablet PO SCH (08:00)
[2020-09-29] MEDS ORDERED: pantoprazole 40mg Tablet.DR PO SCH (08:00)
[2020-09-29] MEDS: gabapentin 300mg capsule PO SCH (08:08)
[2020-09-29] MEDS: apixaban 5mg tablet PO SCH (08:11)
== END 2020-09-29 17:00 | disposition home or self-care (01) ==
LOC: ER 09:53 → ED HOLD 13:17 → EDBEDREQ 15:35 → PCU 3S 16:33
PROVIDERS: ADMIT Internal Medicine; ATTEND Internal Medicine
DX: R07.89 Other chest pain (principal); I25.10 Atherosclerotic heart disease of native coronary artery without angina pectoris; E11.65 Type 2 diabetes mellitus with hyperglycemia; G47.30 Sleep apnea, unspecified; E11.51 Type 2 diabetes mellitus with diabetic peripheral angiopathy without gangrene; I48.0 Paroxysmal atrial fibrillation; I10 Essential (primary) hypertension; F32.9 Major depressive disorder, single episode, unspecified; E78.5 Hyperlipidemia, unspecified; J44.9 Chronic obstructive pulmonary disease, unspecified; G89.29 Other chronic pain; E78.00 Pure hypercholesterolemia, unspecified; Z87.891 Personal history of nicotine dependence; Z95.1 Presence of aortocoronary bypass graft; Z95.2 Presence of prosthetic heart valve; Z79.01 Long term (current) use of anticoagulants; Z79.899 Other long term (current) drug therapy; Z79.82 Long term (current) use of aspirin; Z88.5 Allergy status to narcotic agent
CPT/HCPCS: 36415; 71045; 78452; 80048; 80053; 82948; 83036; 83880; 84484; 85025; 85379; 87081; 93005; 93017; 94640; 94760; 96360; 99285; A9500; G0378; J2785; J7030; J1815; J7626

== ENCOUNTER 2023-12-07 13:40 | Emergency (ER) | payer OTHER, MEDICARE, BC ==
[~2023-12-07] VITALS: Ht 180.3 cm; Wt 90.9 kg
[~2023-12-07 13:40] MED LIST changes: +APIX5TAB3 PO; +ASPI-611 PO; +BUDE10.2 INH; +CALC-1051 PO; +DESO15CR13 TOP; +ERYT30GE4 TOP; +FERR-119 PO; +GABA300C PO; +GLUC-95 PO; +IPRA4AER IH; +MAGN400T39 PO; +METF-516 PO; -METF500T PO; +OLME-39 PO; -OLME1TAB21 PO; -PIOG30TA10 PO; +PIOG45TA5 PO; -PREG150C46 PO; +WOOL454C TOP; +ZINC220C11 PO
[2023-12-07 13:57] VITALS: TEMP 96.3
[2023-12-07 14:05] LABS: BASOPHILS # (AUTO) 0.1 X10'3 (0-0.2); EOSINOPHILS # (AUTO) 0.2 X10'3 (0-0.9); EOSINOPHILS % (AUTO) 1.6 % (0-6); HEMATOCRIT 36.5 % (42.0-52.0); LYMPHOCYTES # (AUTO) 1.8 X10'3 (1.1-4.8); NEUTROPHILS # (AUTO) 6.9 X10'3 (1.8-7.7); NEUTROPHILS % (AUTO) 69.6 % (42-75)
[2023-12-07 14:06] LABS: BASOPHILS % (AUTO) 1.4 % (0-1); HEMOGLOBIN 11.7 g/dl (14.0-17.9); LYMPHOCYTES % (AUTO) 17.8 % (21-51); MEAN CORPUSCULAR HEMOGLOBIN 23.9 PG (27.0-31.0); MEAN CORPUSCULAR HGB CONC 32.1 g/dL (33.0-36.5); MEAN CORPUSCULAR VOLUME 74.5 FL (78-98); MEAN PLATELET VOLUME 9.4 FL (7.4-10.4); MONOCYTES % (AUTO) 9.6 % (2-12); PLATELET COUNT 107 X10'3 (140-440); RED BLOOD COUNT 4.89 X10'6 (4.70-6.10); RED CELL DISTRIBUTION WIDTH 21.1 % (11.5-14.5); WHITE BLOOD COUNT 9.9 X10'3 (4.5-11.0)
[2023-12-07 14:14] LABS: ALANINE AMINOTRANSFERASE 19 U/L (12-78); ALBUMIN/GLOBULIN RATIO 0.7 (1.1-1.5); ALKALINE PHOSPHATASE 68 IU/L (46-116); ANION GAP 9 (8-16); ASPARTATE AMINO TRANSFERASE 14 U/L (10-37); BILIRUBIN,TOTAL 0.6 MG/DL (0.1-1.0); BLOOD UREA NITROGEN 14 MG/DL (7-18); BUN/CREATININE RATIO 12.4 (10.0-20.0); CALCIUM 8.7 MG/DL (8.5-10.1); CHLORIDE 104 MMOL/L (99-107); CREATININE 1.13 MG/DL (0.60-1.10); GLUCOSE 152 MG/DL (70-104); SODIUM 141 MMOL/L (135-145); TOTAL CARBON DIOXIDE 28.4 MMOL/L (24-32); TOTAL PROTEIN 7.5 G/DL (6.4-8.2); eCRCL 58 ML/MIN; eGFR 63 ML/MIN
[2023-12-07 14:23] LABS: PRO BRAIN NATRIURETIC PEPTIDE 323 PG/ML (0-450)
[2023-12-07 15:02] LABS: ANISOCYTOSIS 3+; MICROCYTOSIS 1+; PLATELET ESTIMATE DECREASED
[2023-12-07 15:03] LABS: ACANTHOCYTES FEW; BURR CELLS 1+; GIANT PLATELET FEW; LARGE PLATELETS FEW
[2023-12-07 19:34] VITALS: BP 134/68; PULSE 70; O2SAT 97
[2023-12-07] MEDS: normal saline 1000ML IV soln IVB ONE (19:36)
[2023-12-07 20:07] VITALS: RESP 18
[2023-12-07] MEDS ORDERED: LOP12.5T PO (21:37)
== END 2023-12-07 21:17 | disposition home or self-care (01) ==
LOC: ER 13:41
DX: R55 Syncope and collapse (principal); R42 Dizziness and giddiness; I10 Essential (primary) hypertension; I11.0 Hypertensive heart disease with heart failure; E78.00 Pure hypercholesterolemia, unspecified; J44.9 Chronic obstructive pulmonary disease, unspecified; E11.9 Type 2 diabetes mellitus without complications; Z79.899 Other long term (current) drug therapy
CPT/HCPCS: 36415; 71045; 80053; 83880; 84484; 85008; 85025; 93005; 96360; 99285; J7030; J7040

== ENCOUNTER 2023-12-19 16:41 | Emergency (ER) | payer OTHER, MEDICARE, BC ==
[~2023-12-19] VITALS: Ht 180.3 cm; Wt 90.9 kg
[~2023-12-19 16:41] MED LIST changes: +LOP12.5T PO
[2023-12-19 16:55] VITALS: TEMP 98.7
[2023-12-19 17:16] LABS: EOSINOPHILS # (AUTO) 0.1 X10'3 (0-0.9); HEMOGLOBIN 11.5 g/dl (14.0-17.9); LYMPHOCYTES # (AUTO) 1.6 X10'3 (1.1-4.8); MONOCYTES # (AUTO) 1.1 X10'3 (0-0.9)
[2023-12-19 17:17] LABS: BASOPHILS # (AUTO) 0.1 X10'3 (0-0.2); BASOPHILS % (AUTO) 1.2 % (0-1); EOSINOPHILS % (AUTO) 0.7 % (0-6); LYMPHOCYTES % (AUTO) 13.4 % (21-51); MEAN CORPUSCULAR HEMOGLOBIN 23.5 PG (27.0-31.0); MEAN CORPUSCULAR HGB CONC 31.9 g/dL (33.0-36.5); MEAN CORPUSCULAR VOLUME 73.8 FL (78-98); MEAN PLATELET VOLUME 10.4 FL (7.4-10.4); MONOCYTES % (AUTO) 9.6 % (2-12); NEUTROPHILS % (AUTO) 75.1 % (42-75); PLATELET COUNT 123 X10'3 (140-440); RED BLOOD COUNT 4.87 X10'6 (4.70-6.10); RED CELL DISTRIBUTION WIDTH 21.2 % (11.5-14.5); WHITE BLOOD COUNT 11.9 X10'3 (4.5-11.0)
[2023-12-19 17:22] LABS: ALANINE AMINOTRANSFERASE 39 U/L (12-78); ALBUMIN 3.1 G/DL (3.4-5.0); ALBUMIN/GLOBULIN RATIO 0.6 (1.1-1.5); ALKALINE PHOSPHATASE 78 IU/L (46-116); ANION GAP 11 (8-16); ASPARTATE AMINO TRANSFERASE 30 U/L (10-37); BILIRUBIN,TOTAL 0.7 MG/DL (0.1-1.0); BLOOD UREA NITROGEN 18 MG/DL (7-18); BUN/CREATININE RATIO 13.6 (10.0-20.0); CHLORIDE 99 MMOL/L (99-107); CREATININE 1.32 MG/DL (0.60-1.10); GLUCOSE 122 MG/DL (70-104); POTASSIUM 4.4 MMOL/L (3.5-5.1); SODIUM 136 MMOL/L (135-145); TOTAL CARBON DIOXIDE 25.8 MMOL/L (24-32); TOTAL PROTEIN 7.9 G/DL (6.4-8.2); eCRCL 50 ML/MIN; eGFR 53 ML/MIN
[2023-12-19 17:29] LABS: PRO BRAIN NATRIURETIC PEPTIDE 253 PG/ML (0-450)
[2023-12-19 17:38] LABS: PLATELET ESTIMATE DECREASED
[2023-12-19 17:39] LABS: ANISOCYTOSIS 3+; BURR CELLS 1+; LARGE PLATELETS MODERATE; MICROCYTOSIS 1+; ROULEAUX 1+
[2023-12-19 17:40] LABS: ACANTHOCYTES FEW
[2023-12-19] MEDS ORDERED: CEPH250T PO (20:29)
[2023-12-19] MEDS: cephalexin 250mg capsule PO ONE (20:44)
[2023-12-19] MEDS: triamcinolone acetonide 40mg/ml inj IM ONE (20:45)
[2023-12-19] MEDS: normal saline 1000ml 1,000 ML IV ONE (20:45)
[2023-12-19 21:57] VITALS: BP 144/82; PULSE 77; RESP 18; O2SAT 98
[2023-12-22] MEDS ORDERED: SEMA2PEN SUBCUT (21:33)
== END 2023-12-19 21:58 | disposition home or self-care (01) ==
LOC: ER 16:42
DX: M79.602 Pain in left arm (principal); R07.89 Other chest pain; E78.00 Pure hypercholesterolemia, unspecified; I10 Essential (primary) hypertension; J44.9 Chronic obstructive pulmonary disease, unspecified; E11.9 Type 2 diabetes mellitus without complications; Z88.5 Allergy status to narcotic agent; Z79.899 Other long term (current) drug therapy
CPT/HCPCS: 36415; 71045; 80053; 83880; 84484; 85008; 85025; 93005; 93971; 96360; 96372; 99285; J3301; J7030

== ENCOUNTER 2025-07-06 06:32 | Inpatient (IN) | payer OTHER ==
[2025-06-28 10:35] LABS: MEAN PLATELET VOLUME 10.7 FL (7.4-10.4); PRE OP HEMATOCRIT 35.8 % (42.0-52.0); PRE OP HEMOGLOBIN 11.6 g/dL (14.0-17.9); PRE OP PLATELET COUNT 106 X10'3 (140-440); PRE OP WHITE BLOOD COUNT 5.8 10'3 (4.8-10.8); RED CELL DISTRIBUTION WIDTH 21.0 % (11.5-14.5)
[2025-06-28 10:47] LABS: PRE OP INR 1.1 INR; PRE OP PARTIAL THROMB. TIME 27.0 SECONDS (22-32); PRE OP PROTIME 11.5 SECONDS (9.0-12.0)
--- NOTE | 2025-06-28 10:47 | ELECTROCARDIOGRAPH REPORT ---
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 FREDIS Lujan Measurements Intervals [place] Rate: 59 P: 82 CT: 203 QRS: -28 QRSD: 114 T: 91 QT: 436 QTc: 432 Interpretive Statements Sinus bradycardia Incomplete left bundle branch block Electronically Signed On 06-28-2025 19:07:[address] FREDIS Lujan Please click the below link to view image of tracing.
[2025-06-28 10:48] LABS: CREATININE 1.09 MG/DL (0.60-1.10); PRE OP ALT 28 U/L (30-65); PRE OP ANION GAP 8 (8-16); PRE OP AST 22 U/L (10-37); PRE OP BILIRUB, TOTAL 0.5 MG/DL (0.0-1.0); PRE OP GLUCOSE 143 MG/DL (70-104); PRE OP POTASSIUM 4.2 MMOL/L (3.4-5.1); PRE OP SODIUM 143 MMOL/L (135-145); TOTAL CARBON DIOXIDE 27.4 MMOL/L (24-32); eGFR 65 ML/MIN
[2025-06-28 10:56] LABS: LEUKOCYTE ESTERASE ,URINE NEGATIVE (Neg); NITRITES, URINE NEGATIVE (Neg); OCCULT BLOOD,URINE NEGATIVE (Neg)
[2025-06-28 11:25] LABS: LARGE PLATELETS FEW; PLATELET ESTIMATE DECREASED
[2025-06-28 11:30] LABS: UA COLLECTION TYPE NON-SPECIFIED
--- NOTE | 2025-06-28 11:33 | RADIOLOGY REPORT ---
DI CHEST,TWO VIEWS, HISTORY: PREOP COMPARISON: DI CHEST,SINGLE VIEW on DOS: 12/22/23, DI CHEST,SINGLE VIEW on DOS: 12/19/23, DI CHEST,SINGLE VIEW on DOS: 12/07/23 DI CHEST,SINGLE VIEW on DOS: 12/22/23, DI CHEST,SINGLE VIEW on DOS: 12/19/23, DI CHEST,SINGLE VIEW on DOS: 12/07/23 TECHNICAL DATA: 2 view of the chest was obtained. FINDINGS: Lines and tubes: A valve prosthesis is noted. Cardiomediastinal silhouette: normal Pulmonary vasculature: normal Lung expansion: normal Lung airspace: normal Lung interstitium: normal Pleura: normal Pneumothorax: no Bones: Unremarkable Other: no IMPRESSION: No acute intrathoracic abnormality.
[2025-06-28 11:34] LABS: SQUAMOUS EPITHELIAL CELL,UR NONE SEEN /LPF (FEW)
[~2025-07-06] VITALS: Ht 180.3 cm; Wt 93.0 kg
[2025-07-06] VITALS (25 sets, daily range): BP systolic 97–152; BP diastolic 54–84; PULSE 64–86; RESP 10–20; TEMP 97–98.3; O2SAT 89–100
[2025-07-06] MEDS: DOCUMENT DATE & TIME OF BETA-BLOCKER PO ONE (05:30)
[2025-07-06] MEDS: albuterol 2.5 MG/3 ML nebule NEB ONE (05:30)
[~2025-07-06 06:32] MED LIST changes: -ALLO300T2 PO; -AMLO5TAB PO; -BUDE10.2 INH; +CAL PO; -CALC-1051 PO; +CARV3.122 PO; +CETI10CA PO; -CITA20TA19 PO; +CYCL-920 PO; -DESO15CR13 TOP; +EMPA25TA PO; -ERYT30GE4 TOP; +ESCI5TAB PO; +EVOL140S2 SUBCUT; +EZET10TA6 PO; -FERR-119 PO; +FOLIC PO; -GABA300C PO; -IPRA4AER IH; -LOP12.5T PO; +LYR25C PO; +MAG PO; -MAGN400T39 PO; -METF-516 PO; -METO200T49 PO; +MULT-1085 PO; -OLME-39 PO; -PIOG45TA5 PO; +ROPI4TAB22 PO; +SACU1TAB PO; +SEMA2PEN SUBCUT; +SPIR25TA5 PO; -WOOL454C TOP; +ZINC PO; -ZINC220C11 PO; +ondansetron/PF 4mg/2ml inj IV PRN
[2025-07-06] MEDS: ceFAZolin 2gm/dext,iso 50mL 50 ML IV ONE (07:19)
[2025-07-06] MEDS: VANCOMYCIN/H2O 1.5g/300mL PB 300 ML IV ONE (07:29)
[2025-07-06] MEDS: ringers solution, lacted 1,000 ML IV SCH ×2 (07:29→08:20)
[2025-07-06] MEDS ORDERED: ondansetron/PF 4mg/2ml inj IV PRN ×2 (08:20→09:55)
[2025-07-06] MEDS ORDERED: hydrALAZINE 20mg/ml inj. IV PRN ×2 (08:20→09:55)
[2025-07-06] MEDS ORDERED: acetaminophen 1,000mg/100ml IV 100 ML IV PRN (08:20)
[2025-07-06] MEDS ORDERED: morphine 4 MG/ML inj SYRINge IV PRN (08:20)
[2025-07-06] MEDS ORDERED: HYDROmorphone/PF 0.2 MG/ML SYRINGE IV PRN ×2 (08:20)
[2025-07-06] MEDS ORDERED: labetalol 20mg/4ml (5mg/ml) syringe IV PRN ×2 (08:20→09:55)
[2025-07-06] MEDS ORDERED: LIDOcaine 1% 30ml preserv. free vial ONE (08:23)
[2025-07-06] MEDS ORDERED: fentaNYL/PF 50MCG/1 ML 2ML syringe ONE (08:31)
[2025-07-06] MEDS ORDERED: midazolam 1 mg/ML 2ml injection ONE (08:39)
[2025-07-06] MEDS ORDERED: propofol inj 20 ML IV ONE (08:51)
[2025-07-06] MEDS ORDERED: heparin 1,000unit/ml 10ml vial 10 ML ONE (08:51)
[2025-07-06] MEDS ORDERED: dexamethasone sod phosphate 4mg/ml inj. ONE (08:51)
[2025-07-06] MEDS ORDERED: LIDOcaine 2% (20mg/ml) 5ml vial ONE (08:52)
[2025-07-06] MEDS ORDERED: ondansetron/PF 4mg/2ml inj ONE (08:52)
[2025-07-06] MEDS ORDERED: 0.9 % SODIUM CHLORIDE 10 ML VIAL ONE (09:26)
[2025-07-06] MEDS ORDERED: ePHEDrine 50MG/ML INJ. ONE (09:27)
[2025-07-06] MEDS ORDERED: potassium Cl 40MEQ/270ML bag 250 ML IV PRN (09:55)
[2025-07-06] MEDS ORDERED: ALPRAZolam 0.25mg tablet PO PRN (09:55)
[2025-07-06] MEDS ORDERED: potassium Cl 20mEq/100mL bag 100 ML IV PRN (09:55)
[2025-07-06] MEDS ORDERED: pantoprazole 40mg Tablet.DR PO PRN (09:55)
[2025-07-06] MEDS ORDERED: potassium Cl 40MEQ/1/2NS 520ml 520 ML IV PRN (09:55)
[2025-07-06] MEDS ORDERED: potassium CL 10mEq/100ml bag 100 ML IV PRN (09:55)
[2025-07-06] MEDS ORDERED: docusate sod 100mg capsule PO PRN (09:55)
[2025-07-06] MEDS ORDERED: magnesium sulf-water 4G/100mL 100 ML IV PRN (09:55)
[2025-07-06] MEDS ORDERED: HYDROcodone/acetaminophen 5mg/325mg tablet PO PRN (09:55)
[2025-07-06] MEDS ORDERED: potassium Cl 20 mEq SR tablet PO PRN (09:55)
[2025-07-06] MEDS ORDERED: magnesium sulf-water 2g/50mL 50 ML IV PRN (09:55)
[2025-07-06] MEDS ORDERED: ceFAZolin 1GM/D5W- ADD-VANTAGE 50 ML IV SCH (09:56)
--- NOTE | 2025-07-06 09:57 | OPERATIVE REPORT ---
Operative Report Providers to CC CC: ADAM ZAPATA MD ~ Date of Procedure: Jul 06, 2025 Pre-Operative Diagnosis: Atrial Fibrillation with high bleeding risk Post-Operative Diagnosis SAME as PRE-Op Procedure Performed 1. Transseptal Puncture via DAVIS guidance 2. Left Atrial Appendogram 3. Left Atrial Appendage closure with 27mm Watchman FLX Pro Pro Device 4. Ultrasound guided access, right Femoral Vein Surgeon: Medina zapata MD Tools And Parts Attendant n/a Anesthesiologist: Fariha Antonio Type of Anesthesia: General Findings: Left Atrial appendage amenable to percutaneous closure. Complications None Prosthetics\\Implants used: 27mm Watchman Flx Pro Estimated Blood Loss: Minimal Specimen Removed: None Description of Procedure: The patient was brought to the oil laboratory analyst in a fasting state. They underwent General anesthesia. Ultrasound was used to guide access to the right femoral vein where two kody-cross Perclose devices were placed and upsized to an 8Fr sheath. Heparin was given to maintain an ACT over 250 seconds. An 0.035" wire was advanced into the SVC. The 8Fr sheath was then removed and the 8.5Fr VersaCross Transseptal sheath was advanced into the SVC. The RF wire was then advanced to the tip of the sheath/dilator. Using DAVIS guidance, appropriate position of the tip of the sheath was determined and using an energized wire tip, advanced into the left atrium. The sheath and dilator were then advanced over the wire into the left atrium. Over the wire, the Versacross sheath was removed and exchanged for a 16Fr cook sheath through which the W atchman Sheath was placed. The wire and dilator were then removed and exchanged for a 5Fr pigtail catheter which was placed into the left atrial appendage and an appendogram performed in the HART-Caudal position. There, ACT was confirmed to be therapeutic. The Watchman sheath was then advanced into the left atrial appendage over the pigtail catheter. Once appropriate position was determined, the pigtail was removed, the 27mm Watchman FLX device and delivery system were advanced into the tip of the sheath. The delivery system was advanced until an appropriate FLX ball was formed. The guide was then retracted and the Watchman device was unsheathed will full deployment in the appendage. Repeat imaging confirmed a slightly proximal placement of the device so it was recaptured and repositioned in the superior lobe of the appendage where it was again unsheathed. It appeared to be too proximal so was re-positioned more anteriorly and re-deployed. Next, PASS criteria was performed confirming adequate positioning and anchoring(using a tug-test), sizing showing adequate compression, and no significant leak around the device. Another Appendogram was performed confirming placement. The device was then released from the delivery system. The guide and delivery system were removed and the perclose tied as well as the [id number] suture, ensuring adequate hemostasis. Mean LA Presssure: 12mmHg Contrast: 10cc ACT: 250s Device Compression: 22-29% RESULTS: 1. Successful Left-Atrial Appendage closure with a 27mm Watchman FLX Pro device 2. Right Femoral Vein access, closed with Perclose x 2 and Mobzmf-xm-Dsoeq suture 3. Resume Eliquis 5mg BID x 45days with repeat imaging at that time. If sealed without evidence of device related thrombosis, can stop OAC and start ASA 81mg QD indefinitely, plavix 75mg QD x 6 months. They will be watched in the recovery area until stable, then transferred to the telemetry at that time. MEDINA ZAPATA MD Jul 06, 2025 09:57
--- NOTE | 2025-07-06 11:57 | ELECTROCARDIOGRAPH REPORT ---
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 FREDIS Lujan Measurements Intervals [place] Rate: 63 P: 33 MA: 188 QRS: -13 QRSD: 126 T: 265 QT: 424 QTc: 435 Interpretive Statements Sinus rhythm Left bundle branch block Electronically Signed On 07-08-2025 19:11:[address] FREDIS Ljuan Please click the below link to view image of tracing.
[2025-07-06] MEDS ORDERED: LIDOCAINE 2%/EPI 1:100,000 inj. Multi-dose 20 ML VIAL ONE (11:58)
[2025-07-06] MEDS: normal saline 1000ml 1,000 ML IV SCH (13:03)
[2025-07-06] MEDS: sod chloride 0.9% 10ml flush syringe IV SCH (16:00)
[2025-07-06] MEDS: ceFAZolin 1GM/D5W- ADD-VANTAGE 50 ML IV SCH (17:53)
[2025-07-06] MEDS ORDERED: DEXTROSE 15 GM of carb/4 tabs (each vial/BOTTLE has 4 tablets) PO PRN ×2 (18:30)
[2025-07-06] MEDS ORDERED: dextrose 50%-water 50ml dispensing syringe IV PRN ×2 (18:30)
[2025-07-06] MEDS ORDERED: glucagon, human recombinant 1mg kit SUBCUT PRN (18:30)
--- NOTE | 2025-07-06 18:31 | CARDIOLOGY REPORT ---
APPROVED REPORT EXAM: Focused, limited intraprocedural transesophageal 2D, spectral and color flow Doppler echocardiogram during WATCHMAN deployment. Patient Location: CARDIAC [facility] Blood Pressure: 87/61 mmHg Heart Rate: 73 bpm Rhythm: SINUS Indications PRE IMAGING AND WATCHMAN FLX JONAS CLOSURE DEVICE IMPLANTATION CHRONIC ATRIAL FIBRILLATION 27 mm WATCHMAN FLX JONAS CLOSURE DEVICE AVR UNKNOWN TYPE IN 1999 TAVR ARELIS UNK SIZE AND TYPE AT [facility] HEART MONITOR PLACED OCTOBER 2023 DAVIS PROBE PASSED BY: Junior MAI MD Vehicle Calibration Engineer: Delia Kumar MD / Interventionalist: Delia Kumar MD / Device rep: JOANN FLETCHER Previous echo: NA LEFT VENTRICLE Normal LV size and function. Mild concentric hypertrophy. LVEF appears to be 55-60%. ATRIA LA appears severely dilated. Double-lobed windsock shaped appendage without thrombus detected. Left upper pulmonary vein identified. Intact interatrial septum. Width / length averages are: 0degr - 16 x 21 mm; 45degr - 16 x 21 mm; 90degr - 18 x 23 mm; 135degr 13 x 15 mm. Loop 22-26: Septal tenting visualized with RF atrial septal puncture performed. Loop 27: Wire in LA. Pigtail advanced to tip of appendage. LA pressure is measured at: 11 mmHG. Loop 28: Appendagram performed. Loop 29: Flex ball deployed. 27 mm Watchman FLX device, PASS criteria attempted, unsuccessfully. Valve recaptured, repositioned and redeployed. Loop 32: Successful "TUG" test performed. PASS reassessed. Optimal compression obt ained - shoulder to shoulder measurement is: 20.0 mm. Loop 45: Device released, sheath pulled back across interatrial septum. Patent interatrial septum with small residual left to right shunt (s/p transseptal puncture). Successfully occluded left atrial appendage with Watchman device well positioned without thrombus. No residual flow around device detected. No pericardial effusion post-implant. PERICARDIUM Normal pericardium. No effusion. CONCLUSION Normal LV size and function. Mild concentric hypertrophy. LVEF appears to be 55- 60%. LA appears severely dilated. Double-lobed windsock shaped appendage without thrombus detected. Left upper pulmonary vein identified. Intact interatrial septum. Width / length averages are: 0degr - 16 x 21 mm; 45degr - 16 x 21 mm; 90degr - 18 x 23 mm; 135degr 13 x 15 mm. Loop 22-26: Septal tenting visualized with RF atrial septal puncture performed. Loop 27: Wire in LA. Pigtail advanced to tip of appendage. LA pressure is measured at: 11 mmHG. Loop 28: Appendagram performed. Loop 29: Flex ball deployed. 27 mm Watchman FLX device, PASS criteria attempted, unsuccessfully. Valve recaptured, repositioned and redeployed. Loop 32: Successful "TUG" test performed. PASS reassessed. Optimal compression obtained - shoulder to shoulder measurement is: 20.0 mm. Loop 45: Device released, sheath pulled back across interatrial septum. Patent interatrial septum with small residual left to right shunt (s/p transseptal puncture). Successfully occluded left atrial appendage with Watchman device well positioned without thrombus. No residual flow around device detected. No pericardial effusion post-implant. Normal pericardium. No effusion. Conclusion Normal LV size and function. Mild concentric hypertrophy. LVEF appears to be 55-60%. LA appears severely dilated. Double-lobed windsock shaped appendage without thrombus detected. Left upper pulmonary vein identified. Intact interatrial septum. Width / length averages are: 0degr - 16 x 21 mm; 45degr - 16 x 21 mm; 90degr - 18 x 23 mm; 135degr 13 x 15 mm. Loop 22-26: Septal tenting visualized with RF atrial septal puncture performed. Loop 27: Wire in LA. Pigtail advanced to tip of appendage. LA pressure is measured at: 11 mmHG. Loop 28: Appendagram performed. Loop 29: Flex ball deployed. 27 mm Watchman FLX device, PASS criteria attempted, unsuccessfully. Valve recaptured, repositioned and redeployed. Loop 32: Successful "TUG" test performed. PASS reassessed. Optimal compression obtained - shoulder to shoulder measurement is: 20.0 mm. Loop 45: Device released, sheath pulled back across interatrial septum. Patent interatrial septum with small residual left to right shunt (s/p transseptal puncture). Successfully occluded left atrial appendage with Watchman device well positioned without thrombus. No residual flow around device detected. No pericardial effusion post-implant. Normal pericardium. No effusion.
[2025-07-06] MEDS: sacubitril/valsartan 24mg-26mg tablet PO SCH (20:00)
[2025-07-06] MEDS ORDERED: INSULIN LISPRO 100 UNIT/ML INSULN.PEN MULTI-DOSE SQ SCH (21:00)
[2025-07-06] MEDS: vancomycin/NS 1 GM ADD-VANTAGE 200 ML IV SCH (21:58)
[2025-07-06] MEDS: ESCITALOPRAM 10 mg tablet 10 MG TABLET PO SCH (21:58)
[2025-07-06] MEDS: sacubitril/valsartan 24mg-26mg tablet PO ONE (21:59)
[2025-07-06] MEDS: INSULIN LISPRO 100 UNIT/ML INSULN.PEN MULTI-DOSE SQ SCH (22:43)
[2025-07-07 02:00] VITALS: BP 119/68; PULSE 70; RESP 14; TEMP 97.2; O2SAT 98
[2025-07-07 06:00] VITALS: BP 114/58; PULSE 63; RESP 15; TEMP 97.3; O2SAT 94
[2025-07-07 06:14] LABS: INR 1.2 INR
[2025-07-07 06:22] LABS: MEAN PLATELET VOLUME 10.7 FL (7.4-10.4); RED CELL DISTRIBUTION WIDTH 21.4 % (11.5-14.5)
[2025-07-07 06:30] LABS: CREATININE 1.02 MG/DL (0.60-1.10); PRO BRAIN NATRIURETIC PEPTIDE 408 PG/ML (0-450); TOTAL CARBON DIOXIDE 27.2 MMOL/L (24-32); eCRCL 64 ML/MIN; eGFR 71 ML/MIN
[2025-07-07 07:06] LABS: PLATELET ESTIMATE DECREASED
[2025-07-07 07:07] LABS: LARGE PLATELETS MODERATE
[2025-07-07] MEDS: cholecalciferol (vitamin D3) 1,000 unit (25mcg) tablet PO SCH (07:38)
[2025-07-07] MEDS: vancomycin/NS 1 GM ADD-VANTAGE 250 ML IV SCH (07:46)
--- NOTE | 2025-07-07 07:57 | ELECTROCARDIOGRAPH REPORT ---
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 FREDIS Lujan Measurements Intervals [place] Rate: 65 P: -35 VT: 149 QRS: -28 QRSD: 114 T: 102 QT: 418 QTc: 435 Interpretive Statements Sinus rhythm Incomplete left bundle branch block Electronically Signed On 07-08-2025 19:12:[address] FREDIS Lujan Please click the below link to view image of tracing.
[2025-07-07 08:00] VITALS: RESP 15; O2SAT 96
[2025-07-07] MEDS: aspirin 81mg, enteric-coated 1 TAB TABLET.DR PO SCH (08:00)
--- NOTE | 2025-07-07 08:11 | RADIOLOGY REPORT ---
CHEST RADIOGRAPH Indication: s/p Watchman Technique: Single frontal view of the chest was obtained Comparison: DI CHEST,TWO VIEWS on DOS: 06/28/25, DI CHEST,SINGLE VIEW on DOS: 12/22/23, DI CHEST,SINGLE VIEW on DOS: 12/19/23, DI CHEST,SINGLE VIEW on DOS: 12/07/23, CHEST,SINGLE VIEW on DOS: 09/30/20 FINDINGS: Lines and Tubes: None Lungs: No focal consolidation. Pleura: No effusion. No pneumothorax. Cardiomediastinal contours: Unremarkable Bones: No acute osseous abnormality. IMPRESSION: No acute cardiopulmonary disease.
[2025-07-07 11:00] VITALS: BP 113/59; PULSE 62; RESP 19; TEMP 97.8; O2SAT 96
--- NOTE | 2025-07-07 16:04 | DISCHARGE SUMMARY ---
Discharge Summary Providers to CC ~ Discharge Summary Admission Diagnosis: Atrial Fibrillation with high bleeding risk Hospital Course DATE OF ADMISSION: 07/06/26 DATE OF DISCHARGE: 07/07/25 Discharge Diagnosis\Comment: Atrial fibrillation with high-risk for bleeding status post Watchman Operations\Procedures: 1. Transseptal Puncture via DAVIS guidance 2. Left Atrial Appendogram 3. Left Atrial Appendage closure with 27mm Watchman FLX Pro Pro Device 4. Ultrasound guided access, right Femoral Vein Consultants: No consultations Complications: No complications Condition on DC: Stable Continued Medications: Apixaban (Eliquis) 5 Mg Tablet 1 TAB PO BID Aspirin (Aspir 81) 81 Mg Tablet.dr 1 TAB PO DAILY Atorvastatin Calcium (Atorvastatin Calcium) 80 Mg Tablet 1 TAB PO QPM, TAB Carvedilol (Carvedilol) 3.125 Mg Tablet 1 TAB PO DAILY Cetirizine Hcl (Zyrtec) 10 Mg Capsule 10 MG PO DAILY Cholecalciferol (Vitamin D3) 1,000 Unit Capsule 1000 UNIT PO DAILY, CAP Cyclobenzaprine HCl (Cyclobenzaprine HCl) 5 Mg Tablet 1 TAB PO TID PRN PRN for muscle spasms for 10 Days, #30 TAB 0 Refills Empagliflozin (Jardiance) 25 Mg Tablet 0.5 TAB PO DAILY Escitalopram Oxalate* (Lexapro*) 5 Mg Tablet 2 TAB PO HS Evolocumab (Repatha Syringe) 140 Mg/Ml Syringe 40 MG SUBCUT Q2W Ezetimibe (Zetia) 10 Mg Tablet 10 MG PO DAILY, TAB Glucosamine HCl/Chondr Fernández A Na (Cidaflex Tablet) 1 Each Tablet 1 TAB PO BID, 0 Refills [Mag/Thanh/Zinc/Folic] () 1 UNIT PO BID Multivitamin (Multi Vitamin Daily) 1 Each Tablet 1 EACH PO DAILY Pantoprazole Sodium (PROTONIX tablet) 40 Mg Tablet.dr 1 TAB PO HS Pregabalin* (Lyrica*) 25 Mg Capsule 100 MG PO Q12H Ropinirole Hcl (Ropinirole Hcl) 4 Mg Tab.er.24h 4 MG PO HS Sacubitril/Valsartan (Entresto 24 mg-26 mg Tablet) 24 Mg-26 Mg Tablet 1 TAB PO BID Semaglutide (Ozempic) 2 Mg/0.75 Ml (8 Mg/3 Ml) Pen.injctr 2 MG SUBCUT Q7D PT TAKES ON MONDAYS Spironolactone (Spironolactone) 25 Mg Tablet 12.5 MG PO DAILY Discharge Summary: Patient with past medical history is significant for atrial fibrillation and high-risk for bleeding presented for planned left atrial appendage occlusion. Underwent placement of a 27 mm watchman FL X pro device with Dr. Robin Kumar. Please see his dictation for further details on the procedure. He tolerated well. Was monitored overnight in the telemetry unit. Remained hemodynamically stable. Has been up and ambulatory without complaints. Postoperative echocardiogram demonstrates no pericardial effusion. Physical exam prior to discharge: General: Awake, alert, oriented. No apparent distress Respiratory: Lungs are clear to auscultation bilaterally. No respiratory distress. Chest: Normal shape and size. No accessory muscle use. Cardiovascular: Regular rate and rhythm. S1-S2. No murmur, gallop, rub. Gastrointestinal: Abdomen is soft. Nontender to palpation. Bowel sounds present. Extremities: No lower extremity edema, cyanosis or clubbing. Right femoral cath site with dressing clean dry and intact. No ecchymosis or swelling. No hematoma. Neurologic: Alert and oriented x4. Nonfocal Psychiatric: Normal mood and affect. Skin: Normal color. Warm and dry. Plan: Patient is being discharged home in stable condition. He will follow up as scheduled. He will continue oral anticoagulation as prescribed. All questions answered. Activity restrictions reviewed. Case discussed with Dr. Robin Kumar. In agreement with discharge home. *Problems/Diagnosis: (1) Atrial fibrillation Total Time Spent on D/C: > 30 Minutes Counseling Services Smoking & Tobacco Cessation: N/A ALEXSANDER MORFIN NP Jul 07, 2025 16:04
--- NOTE | 2025-07-07 19:10 | CARDIOLOGY REPORT ---
APPROVED REPORT EXAM: Limited 2D, Doppler, and color-flow Echocardiogram. Patient Location: 3021 Blood Pressure: 114/58 mmHg Heart Rate: 60 bpm Rhythm: NSR Indications One day Watchman FLX Closure Device follow up 27 mm Watchman FLX Closure Device TAVR unk size and type at [facility] Interior Design Director is Delia Kumar MD Previous echo 07/06/25 [facility] EF 55-60%; Intact interatrial septum with small left to right shunt s/p transeptal puncture 2D Dimensions IVC 17.09 mm Tricuspid Valve TR P. Velocity 278 cm/s RAP ESTIMATE 10 mmHg TR Peak Gr. 31 mmHg RVSP 41 mmHg LEFT VENTRICLE LV appears normal in size with mild concentric hypertrophy. Overall systolic function appears normal. LVEF is 65%. RIGHT VENTRICLE RVSP is estimated at 41 mmHG. ATRIA LA is severely dilated. Intact interatrial septum with (small) L to R shunt s/p transseptal puncture by color and spectral Doppler. AORTIC VALVE Unknown size and type TAVR valve appears well seated with trace insufficiency. Not fully evaluated due to limited focused exam. TRICUSPID VALVE The tricuspid valve is normal in structure. Trace tricuspid regurgitation. GREAT VESSELS The IVC is normal in size and collapses >50% with inspiration. PERICARDIUM There is no pericardial effusion. Other Information Study Quality: Adequate Conclusion LV appears normal in size with mild concentric hypertrophy. Overall systolic function appears normal. LVEF is 65%. RVSP is estimated at 41 mmHG. LA is severely dilated. Intact interatrial septum with (small) L to R shunt s/p transseptal puncture by color and spectral Doppler. Unknown size and type TAVR valve appears well seated with trace insufficiency. Not fully evaluated due to limited focused exam. The tricuspid valve is normal in structure. Trace tricuspid regurgitation. There is no pericardial effusion.
[2025-07-07] MEDS ORDERED: sacubitril/valsartan 24mg-26mg tablet PO SCH (20:00)
== END 2025-07-07 15:22 | disposition home or self-care (01) | DRG 274 ==
LOC: PAS IN 06:32 → PCU 3S 12:37
PROVIDERS: ADMIT Student in an Organized Health Care Education/Training Program; ATTEND Student in an Organized Health Care Education/Training Program
PROC: B24BZZ4 Ultrasonography of Heart with Aorta, Transesophageal (ICD-10-PCS; 2025-07-06)
PROC: 02L73DK Occlusion of Left Atrial Appendage with Intraluminal Device, Percutaneous Approach (ICD-10-PCS; principal; 2025-07-06 08:24)
DX: I48.91 Unspecified atrial fibrillation (principal); Z00.6 Encounter for examination for normal comparison and control in clinical research program
CPT/HCPCS: 33340; 36415; 71045; 71046; 76937; 80053; 81001; 82948; 83036; 83735; 83880; 85008; 85025; 85347; 85610; 85730; 86885; 86900; 86901; 86920; 87081; 93005; 93308; 93312; 93325; A4615; A4618; A6258; A6449; C1760; C1889; C1894; G0378; J0690; J1100; J1644; J1815; J2003; J2250; J2405; J2704; J3010; J3373; J3375; J3490; J7030; J7120; Q9967

== ENCOUNTER 2025-07-25 09:06 | Outpatient (CLI) | payer MEDICARE, BC ==
[~2025-07-25 09:06] MED LIST changes: -ondansetron/PF 4mg/2ml inj IV PRN
--- NOTE | 2025-07-25 10:28 | RADIOLOGY REPORT ---
EXAM: MR MRI HEAD HISTORY: PRSNL HX OF TIA (TIA), AND CEREB INFRC W/O RESID DEFICITS COMPARISON: CT CT HEAD on DOS: 12/22/23 TECHNIQUE: Multiplanar multisequence noncontrast MR images of the brain were performed. FINDINGS: No intracranial masses, midline shift, or hydrocephalus are identified. There is mild global brain atrophy. There is mild high T2-FLAIR signal abnormality in the periventricular white matter. There is an old left basal ganglia infarct. There is high signal involving the left basal ganglia on the diffusion-weighted images (images 16-17, series 3), without corresponding low signal on the ADC map, consistent with T2 shine through artifact. There is a small cavum septum pellucidum. Flow voids are present in the major intracranial vessels. The corpus callosum, sella, pituitary, and craniocervical junction are unremarkable. There are Postoperative changes of Bilateral cataract extraction surgery. There is mucosal thickening of the bilateral ethmoid and maxillary sinuses. The bilateral mastoid air cells are clear. All of the maxillary teeth are absent. IMPRESSION: 1. Global brain atrophy and chronic ischemic changes, including old infarct of the left basal evidence of acute infarct or other acute intracranial process. 2. Bilateral maxillary and ethmoid sinus disease.
== END 2025-07-25 23:59 | disposition home or self-care (01) ==
LOC: MRI02 09:06
PROVIDERS: ATTEND Student in an Organized Health Care Education/Training Program
DX: I67.89 Other cerebrovascular disease (principal); G31.9 Degenerative disease of nervous system, unspecified; J32.0 Chronic maxillary sinusitis; J32.2 Chronic ethmoidal sinusitis; Z86.73 Personal history of transient ischemic attack (TIA), and cerebral infarction without residual deficits
CPT/HCPCS: 70551

== ENCOUNTER 2025-08-03 09:13 | Outpatient (CLI) | payer OTHER ==
[2025-08-03 10:10] LABS: CREATININE 1.16 MG/DL (0.60-1.10); TOTAL CARBON DIOXIDE 30.3 MMOL/L (24-32); eGFR 61 ML/MIN
[2025-08-03 10:20] LABS: MEAN PLATELET VOLUME 10.7 FL (7.4-10.4); RED CELL DISTRIBUTION WIDTH 21.7 % (11.5-14.5)
[2025-08-03 10:30] LABS: BASOPHILS % (MANUAL) 1.0 % (0-1); EOSINOPHILS % (MANUAL) 2.0 % (0-6); LYMPHOCYTES % (MANUAL) 28.0 % (21-51); MONOCYTES % (MANUAL) 15.0 % (2-12); NEUTROPHILS % (MANUAL) 54.0 % (42-75)
[2025-08-03 10:31] LABS: PLATELET ESTIMATE DECREASED
[2025-08-03 10:33] LABS: GIANT PLATELET FEW; LARGE PLATELETS MODERATE
--- NOTE | 2025-08-03 19:06 | RADIOLOGY REPORT ---
CT POST WATCHMAN INDICATION: PRESENCE OF OTHER CARDIAC IMPLANTS AND GRAFTS TECHNIQUE: CT cardiac imaging for left atrial appendage analysis post Watchman device placement has been obtained. 3-D, MIP, and MPR images obtained. All CT scans at this facility use dose modulation, iterative reconstruction, and/or weight based dosing when appropriate to reduce radiation dose to as low as reasonably achievable. COMPARISON: CATH LAAO on DOS: 07/06/25 STUDY QUALITY: Good FINDINGS: LEFT ATRIAL APPENDAGE: Indeterminate etiology of contrast beyond the fabric outer margin within the anchoring cage. Delayed images demonstrate increased enhancement within the entirety of the nitinol frame. Question xi-implant leakage. CARDIAC CHAMBERS: Normal size of ventricles and right atrium. No intracardiac thrombus. Aortic valvular replacement. OTHER: Small calcific granuloma of the left lower lobe. Left anterior chest loop recorder. IMPRESSION: Indeterminate etiology of contrast beyond the fabric outer margin within the anchoring cage. Delayed images demonstrate increased enhancement within the entirety of the nitinol frame. Question xi-implant leakage.
== END 2025-08-03 23:59 | disposition home or self-care (01) ==
LOC: RAD 09:13
PROVIDERS: ATTEND Student in an Organized Health Care Education/Training Program
DX: J84.10 Pulmonary fibrosis, unspecified (principal); Z95.818 Presence of other cardiac implants and grafts; N32.89 Other specified disorders of bladder; Q25.46 Tortuous aortic arch; Z95.2 Presence of prosthetic heart valve
CPT/HCPCS: 36415; 71275; 75572; 80053; 85007; 85025; Q9967

== ENCOUNTER 2025-08-18 10:22 | Day surgery (SDC) | payer OTHER ==
[~2025-08-18] VITALS: Ht 180.3 cm; Wt 96.1 kg
[2025-08-18] MEDS ORDERED: MIDAZolam 1mg/ml 10ml vial IV ONE (11:10)
[2025-08-18] MEDS ORDERED: fentaNYL/PF 50MCG/1 ML 2ML syringe IV ONE (11:10)
[2025-08-18 11:33] VITALS: BP 107/62; PULSE 68; RESP 16; TEMP 98.1; O2SAT 97
[2025-08-18] MEDS ORDERED: midazolam 1 mg/ML 2ml injection ONE (11:35)
[2025-08-18] MEDS ORDERED: fentaNYL/PF 50MCG/1 ML 2ML syringe ONE (11:36)
[2025-08-18 11:38] VITALS: RESP 16; O2SAT 97
[2025-08-18 11:43] LABS: MEAN PLATELET VOLUME 9.3 FL (7.4-10.4); RED CELL DISTRIBUTION WIDTH 21.5 % (11.5-14.5)
[2025-08-18 11:49] LABS: CREATININE 0.99 MG/DL (0.60-1.10); TOTAL CARBON DIOXIDE 29.9 MMOL/L (24-32); eCRCL 66 ML/MIN; eGFR 73 ML/MIN
[2025-08-18 11:51] LABS: INR 1.1 INR
[2025-08-18 12:02] VITALS: BP 117/71; PULSE 69; RESP 19; O2SAT 97
[2025-08-18] MEDS ORDERED: CLOP75TA33 PO (12:09)
[2025-08-18 12:15] VITALS: BP 124/69; PULSE 63; RESP 11; O2SAT 96
[2025-08-18 12:30] VITALS: BP 136/63; PULSE 65; RESP 14; O2SAT 97
[2025-08-18 12:41] LABS: EOSINOPHILS % (MANUAL) 6.0 % (0-6); LYMPHOCYTES % (MANUAL) 27.0 % (21-51); MONOCYTES % (MANUAL) 13.0 % (2-12); NEUTROPHILS % (MANUAL) 54.0 % (42-75); NUCLEATED RED BLOOD CELLS 2 /100WBC (0-0); PLATELET ESTIMATE DECREASED
[2025-08-18 12:42] LABS: GIANT PLATELET FEW
[2025-08-18 12:45] VITALS: BP 119/65; PULSE 64; RESP 13; O2SAT 97
--- NOTE | 2025-08-18 18:31 | CARDIOLOGY REPORT ---
APPROVED REPORT EXAM: Focused, limited transesophageal echocardiogram with color flow Doppler. Patient Location: [facility] Blood Pressure: 136/65 mmHg Heart Rate: 66 bpm Rhythm: SINUS Indications POST WATCHMAN FLX JONAS CLOSURE DEVICE IMPLANTATION FOLLOW UP EVALUATE DEVICE FOR THROMBUS, POSITION, AND SEAL ABNORMAL POST-WATCHMAN CT DAVIS probe passed by: Delia Kumar MD [employer]ant Systems: Delia Kumar MD Preivous echo: 07/06/25 [facility] SS/HD (EF 55-60%, successful 27 mm WMN, no residual device around flow in all views, no PE post implant) LEFT VENTRICLE Normal LV size and wall thickness. Overall systolic function is normal. LVEF is 55-60%. ATRIA LA is moderately dilated. Mobile interatrial septum with small L to R shunt s/p transseptal puncture. Left upper pulmonary vein identified. Successfully occluded left atrial appendage with well visualized Watchman device well positioned without thrombus. No residual flow detected around device in all v iews. GREAT VESSELS Aortic root is normal in size. Ascending aorta is normal in size. Descending aorta is normal in size. PERICARDIUM Normal pericardium. No effusion. CONCLUSION Normal LV size and wall thickness. Overall systolic function is normal. LVEF is 55-60%. LA is moderately dilated. Mobile interatrial septum with small L to R shunt s/p transseptal puncture. Left upper pulmonary vein identified. Successfully occluded left atrial appendage with well visualized Watchman device well positioned without thrombus. No residual flow detected around device in all views. Normal pericardium. No effusion. Conclusion Normal LV size and wall thickness. Overall systolic function is normal. LVEF is 55-60%. LA is moderately dilated. Mobile interatrial septum with small L to R shunt s/p transseptal puncture. Left upper pulmonary vein identified. Successfully occluded left atrial appendage with well visualized Watchman device well positioned without thrombus. No residual flow detected around device in all views. Normal pericardium. No effusion.
== END 2025-08-18 13:15 | disposition home or self-care (01) ==
LOC: SSTAY O 10:22 → EDSTATUS 12:00 → SSTAY O 13:15
PROVIDERS: ATTEND Student in an Organized Health Care Education/Training Program
DX: I48.0 Paroxysmal atrial fibrillation (principal); I25.10 Atherosclerotic heart disease of native coronary artery without angina pectoris; I10 Essential (primary) hypertension; E11.51 Type 2 diabetes mellitus with diabetic peripheral angiopathy without gangrene; J44.9 Chronic obstructive pulmonary disease, unspecified; E78.5 Hyperlipidemia, unspecified; G47.33 Obstructive sleep apnea (adult) (pediatric); Z86.73 Personal history of transient ischemic attack (TIA), and cerebral infarction without residual deficits; Z87.891 Personal history of nicotine dependence; Z79.01 Long term (current) use of anticoagulants; Z79.899 Other long term (current) drug therapy; Z95.5 Presence of coronary angioplasty implant and graft; Z95.2 Presence of prosthetic heart valve; Z88.5 Allergy status to narcotic agent
CPT/HCPCS: 36415; 80048; 82948; 85025; 85610; 93312; J2250; J3010; J7030; 85007; 99152